=== PATIENT | female | born 1995 | race African-American/Black ===

== ENCOUNTER 2017-02-19 09:56 | Emergency (ER) | payer SELFPAY ==
[~2017-02-19] VITALS: Ht 162.6 cm; Wt 117.0 kg
[~2017-02-19 09:56] MED LIST: AMOX1TAB61 PO; AMOX500T PO; FLUT9.9S NS; IBUP-1060 PO; PRED50TA PO; PSEU120T58 PO
[2017-02-19 10:23] VITALS: BP 126/81
--- NOTE | 2017-02-19 10:52 | PHYS DOC ---
Past Medical History Past Medical History: No Pertinent History Past Surgical History: No Surgical History Alcohol Use: None Drug Use: None Adult General Chief Complaint Chief Complaint: ANKLE PROBLEM HPI HPI Patient is a 21 year old female presents to the emergency department stating that for the last week she's been having bilateral lower ankle swelling. 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 She also states that she has had no injury or trauma to her ankles. She does state that she's had some shortness of breath and some congestion as well. Patient also states that she's been having some brown in color drainage from her vaginal area and is requesting to be checked for sexually transmitted infections. Patient denies any abdominal pain or discomfort. Review of Systems Review of Systems Constitutional: Denies fever or chills [] Eyes: Denies change in visual acuity, redness, or eye pain [] HENT: Denies nasal congestion or sore throat [] Respiratory: cough and shortness of breath [] Cardiovascular: No additional information not addressed in HPI [] GI: Denies abdominal pain, nausea, vomiting, bloody stools or diarrhea [] : Denies dysuria or hematuria [] Musculoskeletal: Denies back pain complain of bilateral lower ankle swelling Integument: Denies rash or skin lesions [] Neurologic: Denies headache, focal weakness or sensory changes [] Endocrine: Denies polyuria or polydipsia [] Current Medications Current Medications Current Medications Medications (Trade) Dose Ordered Sig/Maritza Start Time Stop Time Status Last Admin Dose Admin Azithromycin (Zithromax) 1,000 mg 1X ONCE 02/19/17 12:45 02/19/17 12:46 Ceftriaxone Sodium (Rocephin Im) 250 mg 1X ONCE 02/19/17 12:45 02/19/17 12:46 Metronidazole (Flagyl) 2,000 mg 1X ONCE 02/19/17 12:45 02/19/17 12:46 Allergies Allergies Allergies Coded Allergies Type Severity Reaction Last Updated Verified No Known Drug Allergies 08/19/15 No Physical Exam Physical Exam Constitutional: Well developed, well nourished, no acute distress, non-toxic appearance. [] HENT: Normocephalic, atraumatic, bilateral external ears normal, oropharynx moist, no oral exudates, nose normal. [] Eyes: PERRLA, EOMI, conjunctiva normal, no discharge. [] Neck: Normal range of motion, no tenderness, supple, no stridor. [] Cardiovascular:Heart rate regular rhythm, no murmur [] Lungs & Thorax: Bilateral breath sounds clear to auscultation. Patient is able to talk without any shortness of air difficulty breathing noted. Abdomen: Bowel sounds normal, soft, no tenderness, no masses, no pulsatile masses. [] Skin: Warm, dry, no erythema, no rash. [] Extremities: No tenderness, no cyanosis, no clubbing, ROM intact, no edema. Bilateral pedal pulses 2+ posterior tibial pulses 2+ cap refill brisk less than 2 seconds. I do not appreciate any swelling or edema in the ankle area. Neurologic: Alert and oriented X 3, normal motor function, normal sensory function, no focal deficits noted. [] Psychologic: Affect normal, judgement normal, mood normal. [] Vaginal exam was completed with DEANNA Queen at bedside. Patient was noted to have yellow vaginal discharge that was then in color. Patient with manual exam with no adnexal or CMT tenderness noted. Current Patient Data Vital Signs Vital Signs Date Time Temp Pulse Resp B/P (MAP) Pulse Ox O2 Delivery O2 Flow Rate FiO2 02/19/17 10:23 98.9 69 18 100 Room Air 98.9 Lab Values Laboratory Tests Test 02/19/17 10:47 02/19/17 10:52 02/19/17 11:55 Urine Collection Type Unknown Urine Color Yellow Urine Clarity Clear Urine pH 6.0 Urine Specific [place] >=1.030 Urine Protein Negative mg/dL (NEG-TRACE) Urine Glucose (UA) Negative mg/dL (NEG) Urine Ketones (Stick) 15 mg/dL (NEG) Urine Blood Moderate (NEG) Urine Nitrite Negative (NEG) Urine Bilirubin Negative (NEG) Urine Urobilinogen Dipstick 0.2 mg/dL (0.2 mg/dL) Urine Leukocyte Esterase Negative (NEG) Urine RBC Occ /HPF (0-2) Urine WBC 1-4 /HPF (0-4) Urine Squamous Epithelial Cells Few /LPF Urine Bacteria Few /HPF (0-FEW) Urine Mucus Mod /LPF POC Urine HCG, Qualitative Hcg negative (Negative) White Blood Count 5.4 x10^3/uL (4.0-11.0) Red Blood Count 5.24 x10^6/uL (3.50-5.40) Hemoglobin 14.3 g/dL (12.0-15.5) Hematocrit 43.9 % (36.0-47.0) Mean Corpuscular Volume 84 fL (79-100) Mean Corpuscular Hemoglobin 27 pg (25-35) Mean Corpuscular Hemoglobin Concent 33 g/dL (31-37) Red Cell Distribution Width 13.8 % (11.5-14.5) Platelet Count 178 x10^3/uL (140-400) Neutrophils (%) (Auto) 51 % (31-73) Lymphocytes (%) (Auto) 35 % (24-48) Monocytes (%) (Auto) 9 % (0-9) Eosinophils (%) (Auto) 5 % (0-3) H Basophils (%) (Auto) 1 % (0-3) Neutrophils # (Auto) 2.8 x10^3uL (1.8-7.7) Lymphocytes # (Auto) 1.9 x10^3/uL (1.0-4.8) Monocytes # (Auto) 0.5 x10^3/uL (0.0-1.1) Eosinophils # (Auto) 0.3 x10^3/uL (0.0-0.7) Basophils # (Auto) 0.1 x10^3/uL (0.0-0.2) Sodium Level 140 mmol/L (136-145) Potassium Level 4.0 mmol/L (3.5-5.1) Chloride Level 105 mmol/L (98-107) Carbon Dioxide Level 26 mmol/L (21-32) Anion Gap 9 (6-14) Blood Urea Nitrogen 13 mg/dL (7-20) Creatinine 0.8 mg/dL (0.6-1.0) Estimated GFR (Cockcroft-Gault) 109.6 BUN/Creatinine Ratio 16 (6-20) Glucose Level 93 mg/dL (70-99) Calcium Level 9.0 mg/dL (8.5-10.1) Total Bilirubin 0.9 mg/dL (0.2-1.0) Aspartate Amino Transferase (AST) 37 U/L (15-37) Alanine Aminotransferase (ALT) 32 U/L (14-59) Alkaline Phosphatase 71 U/L (46-116) CN-Mkf-O-Type Natriuretic Peptide 12 pg/mL (0-124) Total Protein 8.5 g/dL (6.4-8.2) H Albumin 3.8 g/dL (3.4-5.0) Albumin/Globulin Ratio 0.8 (1.0-1.7) L Laboratory Tests 02/19/17 11:55 Laboratory Tests 02/19/17 11:55 Microbiology 02/19/17 Wet Prep - Final, Complete EKG EKG [] Radiology/Procedures Radiology/Procedures [] Course & Med Decision Making Course & Med Decision Making Pertinent Labs and Imaging studies reviewed. (See chart for details) CBC, CMP, BNP, chest x-ray, wet prep were negative for any abnormalities. Patient will be discharged home with recommendations for Tylenol or ibuprofen for pain and discomfort. Recommended elevation of her lower extremities as well as MARCUS hose when she is at work. Patient will be discharged home in stable condition with signs and symptoms to return back to emergency department. Recommended that she follow up with a primary care physician in the next week. All questions and concerns was answered at patient's bedside. Patient agrees with discharge instructions, treatment regimens and follow-up recommendations. [] Dragon Disclaimer Dragon Disclaimer This electronic medical record was generated, in whole or in part, using a voice recognition dictation system. Departure Departure Impression: Primary Impression: Concern about sexually transmitted disease in female without diagnosis Additional Impression: Localized swelling of both lower legs Disposition: 01 HOME, SELF-CARE Condition: STABLE Referrals: NO PCP (PCP) Patient Instructions: Ankle Pain, Sexually Transmitted Disease, [id number] Additional Instructions: Your lab results were negative for any abnormalities. Your chest x-ray was negative as well. You'll be notified if you're cultures are positive within the next 3-5 days. Refrain from sexual intercourse for the next 2 weeks. Tylenol or ibuprofen for pain and discomfort. It is imperative that you 6 sex practices to prevent sexual transmitted infections. You may use compression stocking to help with lower leg swelling Follow-up with your primary care physician in the next week. Return back to emergency prior signs symptoms of become worse. Problem Qualifiers OSMIN ALVAREZ APRN Feb 19, 2017 10:52
--- NOTE | 2017-02-19 11:10 | RAD ---
2 view CXR: Clinical indications: Shortness of air with bilateral ankle swelling. Findings: No acute lung infiltrate or pleural effusion or pulmonary edema or lung mass or pneumothorax is seen. The heart size, pulmonary vasculature, mediastinum and both ike are unremarkable. The osseous structures appear intact. Impression: No acute radiographic abnormality is seen.
[2017-02-19 11:59] LABS: BILIRUBIN,URINE NEGATIVE (NEG); GLUCOSE,URINE NEGATIVE (NEG); NITRITE,URINE NEGATIVE (NEG); PROTEIN,URINE NEGATIVE (NEG-TRACE); UROBILINOGEN,URINE 0.2 mg/dL (0.2 mg/dL)
[2017-02-19 12:00] LABS: BACTERIA,URINE FEW /HPF (0-FEW); RBC,URINE OCC /HPF (0-2); SQUAMOUS EPITHELIAL CELL,UR FEW /LPF
[2017-02-19 12:08] LABS: BASO # 0.1 x10^3/uL (0.0-0.2); BASO % 1 % (0-3); EOS % 5 % (0-3); HEMATOCRIT 43.9 % (36.0-47.0); HEMOGLOBIN 14.3 g/dL (12.0-15.5); LYMPH # 1.9 x10^3/uL (1.0-4.8); LYMPH % 35 % (24-48); MEAN CORPUSCULAR HEMOGLOBIN 27 pg (25-35); MEAN CORPUSCULAR HGB CONC 33 g/dL (31-37); MEAN CORPUSCULAR VOLUME 84 fL (79-100); MONO % 9 % (0-9); NEUT % 51 % (31-73); PLATELET COUNT 178 x10^3/uL (140-400); RED BLOOD COUNT 5.24 x10^6/uL (3.50-5.40); RED CELL DISTRIBUTION WIDTH 13.8 % (11.5-14.5); WHITE BLOOD COUNT 5.4 x10^3/uL (4.0-11.0)
[2017-02-19 12:18] LABS: CREATININE 0.8 mg/dL (0.6-1.0); GFR 109.6
[2017-02-19 12:27] LABS: ALBUMIN 3.8 g/dL (3.4-5.0); ALBUMIN/GLOBULIN RATIO 0.8 (1.0-1.7); TOTAL BILIRUBIN 0.9 mg/dL (0.2-1.0); TOTAL PROTEIN 8.5 g/dL (6.4-8.2)
[2017-02-19] MEDS ORDERED: AZITHROMYCIN 250 MG TABLET. PO ONE (12:45)
[2017-02-19] MEDS ORDERED: metroNIDAZOLE 500 MG TABLET PO ONE (12:45)
[2017-02-19] MEDS ORDERED: cefTRIAXone IM 250 MG VIAL IM ONE (12:45)
== END 2017-02-19 13:05 | disposition home or self-care (01) ==
LOC: ER 09:56
DX: Z11.3 Encounter for screening for infections with a predominantly sexual mode of transmission (principal); M79.89 Other specified soft tissue disorders; N89.8 Other specified noninflammatory disorders of vagina
CPT/HCPCS: 36415; 71020; 80053; 81001; 81025; 83880; 85025; 87491; 87591; 96372; 99285; J0696; Q0111; Q0144

== ENCOUNTER 2017-05-30 16:23 | Emergency (ER) | payer OTHER ==
[2017-05-30 16:50] LABS: URINE HCG POC HCG NEGATIVE (Negative)
[2017-05-30 17:28] LABS: BILIRUBIN,URINE NEGATIVE (NEG); CLARITY,URINE CLEAR; COLOR,URINE YELLOW; GLUCOSE,URINE NEGATIVE (NEG); NITRITE,URINE NEGATIVE (NEG); PH,URINE 5.5; PROTEIN,URINE NEGATIVE (NEG-TRACE)
[2017-05-30 17:40] LABS: BACTERIA,URINE MODERATE /HPF (0-FEW); RBC,URINE 0 /HPF (0-2); SQUAMOUS EPITHELIAL CELL,UR MOD /LPF
[2017-05-30] MEDS: AZITHROMYCIN 250 MG TABLET. PO (18:32)
[2017-05-30] MEDS: metroNIDAZOLE 500 MG TABLET PO (18:32)
[2017-05-30] MEDS: cefTRIAXone IM 250 MG VIAL IM (18:35)
[2017-05-31 19:18] LABS: CHLAMYDIA PROBE Negative (Negative); GC PROBE Negative (Negative)
== END 2017-05-30 18:55 | disposition home or self-care (01) ==
LOC: ER 16:23
DX: N76.0 Acute vaginitis (principal); B96.89 Other specified bacterial agents as the cause of diseases classified elsewhere; N72 Inflammatory disease of cervix uteri
CPT/HCPCS: 81001; 81025; 87086; 87491; 87591; 96372; 99284-25; J0696; Q0111; Q0144

== ENCOUNTER 2017-06-29 15:37 | Emergency (ER) | payer OTHER ==
[2017-06-29 16:47] LABS: BILIRUBIN,URINE NEGATIVE (NEG); CLARITY,URINE TURBID; COLOR,URINE YELLOW; GLUCOSE,URINE NEGATIVE (NEG); NITRITE,URINE NEGATIVE (NEG); PROTEIN,URINE NEGATIVE (NEG-TRACE); UROBILINOGEN,URINE 0.2 mg/dL (0.2 mg/dL)
[2017-06-29 16:49] LABS: URINE HCG POC HCG NEGATIVE (Negative)
[2017-06-29 16:56] LABS: BACTERIA,URINE MOD /HPF (0-FEW); RBC,URINE 0 /HPF (0-2); SQUAMOUS EPITHELIAL CELL,UR MOD /LPF; YEAST,URINE PRESENT /HPF
[2017-06-30 14:32] LABS: CHLAMYDIA PROBE Negative (Negative); GC PROBE Negative (Negative)
== END 2017-06-29 17:40 | disposition home or self-care (01) ==
LOC: ER 15:37
DX: N89.8 Other specified noninflammatory disorders of vagina (principal)
CPT/HCPCS: 81001; 81025; 87491; 87591; 99284; Q0111

== ENCOUNTER 2017-09-20 10:06 | Emergency (ER) | payer OTHER ==
[2017-09-20 10:22] LABS: URINE HCG POC HCG NEGATIVE (Negative)
[2017-09-20 10:52] LABS: BILIRUBIN,URINE NEGATIVE (NEG); CLARITY,URINE CLEAR; COLOR,URINE YELLOW; GLUCOSE,URINE NEGATIVE (NEG); NITRITE,URINE NEGATIVE (NEG); PH,URINE 7.5; PROTEIN,URINE NEGATIVE (NEG-TRACE)
[2017-09-20 11:03] LABS: BACTERIA,URINE FEW /HPF (0-FEW); RBC,URINE 0 /HPF (0-2); SQUAMOUS EPITHELIAL CELL,UR MANY /LPF; WBC,URINE 0 /HPF (0-4)
[2017-09-20] MEDS: metroNIDAZOLE 500 MG TABLET PO (11:36)
[2017-09-20] MEDS: AZITHROMYCIN 250 MG TABLET. PO (11:37)
[2017-09-20] MEDS: cefTRIAXone IM 250 MG VIAL IM (11:37)
[2017-09-21 14:28] LABS: CHLAMYDIA PROBE Negative (Negative); GC PROBE Negative (Negative)
== END 2017-09-20 12:39 | disposition home or self-care (01) ==
LOC: ER 10:06
DX: N76.0 Acute vaginitis (principal); Z11.3 Encounter for screening for infections with a predominantly sexual mode of transmission
CPT/HCPCS: 81001; 81025; 87491; 87591; 96372; 99284; J0696; Q0111; Q0144

== ENCOUNTER 2017-09-27 08:39 | Emergency (ER) | payer OTHER ==
[2017-09-27 08:57] LABS: URINE HCG POC HCG NEGATIVE (Negative)
[2017-09-27 09:21] LABS: BILIRUBIN,URINE NEGATIVE (NEG); CLARITY,URINE CLOUDY; COLOR,URINE YELLOW; GLUCOSE,URINE NEGATIVE (NEG); NITRITE,URINE NEGATIVE (NEG); PH,URINE 7.5; PROTEIN,URINE NEGATIVE (NEG-TRACE); UROBILINOGEN,URINE 0.2 mg/dL (0.2 mg/dL)
[2017-09-27 09:42] LABS: BACTERIA,URINE FEW /HPF (0-FEW); RBC,URINE 0 /HPF (0-2); WBC,URINE 0 /HPF (0-4)
== END 2017-09-27 09:53 | disposition home or self-care (01) ==
LOC: ER 08:39
DX: N39.0 Urinary tract infection, site not specified (principal)
CPT/HCPCS: 81001; 81025; 87491; 87591; 99284

== ENCOUNTER 2017-12-06 08:27 | Emergency (ER) | payer OTHER ==
[2017-12-06 09:07] LABS: URINE HCG POC HCG NEGATIVE (Negative)
[2017-12-06 09:09] LABS: BILIRUBIN,URINE NEGATIVE (NEG); CLARITY,URINE CLEAR; COLOR,URINE YELLOW; GLUCOSE,URINE NEGATIVE (NEG); NITRITE,URINE NEGATIVE (NEG); PROTEIN,URINE NEGATIVE (NEG-TRACE)
[2017-12-06] MEDS ORDERED: LIDOCAINE WITH 8.4% SOD BICARB 3 ML DISP.SYRIN. (09:09)
[2017-12-06] MEDS: AZITHROMYCIN 250 MG TABLET. PO (09:24)
[2017-12-06 09:26] LABS: BACTERIA,URINE FEW /HPF (0-FEW); RBC,URINE 0 /HPF (0-2); SQUAMOUS EPITHELIAL CELL,UR MOD /LPF
[2017-12-06] MEDS: cefTRIAXone IM 250 MG VIAL IM (09:26)
[2017-12-07 14:37] LABS: CHLAMYDIA PROBE Negative (Negative); GC PROBE Negative (Negative)
== END 2017-12-06 09:50 | disposition home or self-care (01) ==
LOC: ER 08:27
DX: Z20.2 Contact with and (suspected) exposure to infections with a predominantly sexual mode of transmission (principal)
CPT/HCPCS: 81001; 81025; 87086; 87491; 87591; 96372; 99284-25; J0696; Q0111; Q0144

== ENCOUNTER 2018-02-01 09:46 | Emergency (ER) | payer OTHER ==
[~2018-02-01] VITALS: Ht 162.6 cm; Wt 83.5 kg
[~2018-02-01 09:46] MED LIST changes: +FLUC150T PO; +METR500T PO; +NITR100C62 PO; +SULF1TAB24 PO
[2018-02-01 10:29] LABS: BILIRUBIN,URINE NEGATIVE (NEG); CLARITY,URINE CLEAR; COLOR,URINE YELLOW; NITRITE,URINE NEGATIVE (NEG); PROTEIN,URINE NEGATIVE (NEG-TRACE); UROBILINOGEN,URINE 0.2 mg/dL (0.2 mg/dL)
[2018-02-01] MEDS ORDERED: AZITHROMYCIN 250 MG TABLET. PO ONE (10:30)
[2018-02-01] MEDS ORDERED: cefTRIAXone IM 250 MG VIAL IM ONE (10:30)
[2018-02-01] MEDS ORDERED: METR500T PO (10:33)
--- NOTE | 2018-02-01 10:34 | PHYS DOC ---
Past Medical History Past Medical History: No Pertinent History Additional Past Medical Histor: gonorrhea/chlamydia Past Surgical History: No Surgical History Alcohol Use: None Drug Use: None Adult General Chief Complaint Chief Complaint: VAGINAL PROBLEM HPI HPI 22 year old female presents to ER for complaints of vaginal discharge and foul odor for the past 3-4 days. Patient reports she has had previous bacterial infections and was diagnosed several years ago with gonorrhea and chlamydia. Patient denies any pain or pressure. Patient denies abdominal pain, nausea or vomiting, or fever/chills. Pt reports vag. discharge has been clear and "slimy" . Pt reports she has Mirena and doesn't have monthly cycles. Pt denies urinary sxs. Review of Systems Review of Systems Constitutional: Denies fever or chills [] Eyes: Denies change in visual acuity, redness, or eye pain [] HENT: Denies nasal congestion or sore throat [] Respiratory: Denies cough or shortness of breath [] Cardiovascular: No additional information not addressed in HPI [] GI: Denies abdominal pain, nausea, vomiting, bloody stools or diarrhea [] : Denies dysuria or hematuria. Denies pelvic pain/pressure. Reports clear slimy vag. discharge. Denies pelvic pain/pressure. Musculoskeletal: Denies back pain or joint pain [] Integument: Denies rash or skin lesions [] Neurologic: Denies headache, focal weakness or sensory changes [] All other systems were reviewed and found to be within normal limits, except as documented in this note. Current Medications Current Medications Current Medications Medications (Trade) Dose Ordered Sig/Maritza Start Time Stop Time Status Last Admin Dose Admin Azithromycin (Zithromax) 1,000 mg 1X ONCE 02/01/18 10:30 02/01/18 10:31 DC 02/01/18 10:34 1,000 MG Ceftriaxone Sodium (Rocephin Im) 250 mg 1X ONCE 02/01/18 10:30 02/01/18 10:31 DC 02/01/18 10:34 250 MG Allergies Allergies Allergies Coded Allergies Type Severity Reaction Last Updated Verified No Known Drug Allergies 08/19/15 No Physical Exam Physical Exam Constitutional: Well developed, well nourished, no acute distress, non-toxic appearance. [] HENT: Normocephalic, atraumatic, bilateral external ears normal, oropharynx moist, no oral exudates, nose normal. [] Eyes: PERRLA, EOMI, conjunctiva normal, no discharge. [] Neck: Normal range of motion, no tenderness, supple, no stridor. [] Cardiovascular:Heart rate regular rhythm, no murmur [] Lungs & Thorax: Bilateral breath sounds clear to auscultation [] Abdomen: Bowel sounds normal, soft, no tenderness, no masses, no pulsatile masses. [] Skin: Warm, dry, no erythema, no rash. [] Back: No tenderness, no CVA tenderness. [] Extremities: No tenderness, no cyanosis, no clubbing, ROM intact, no edema. [] Neurologic: Alert and oriented X 3, normal motor function, normal sensory function, no focal deficits noted. [] Psychologic: Affect normal, judgement normal, mood normal. [] Current Patient Data Vital Signs Vital Signs Date Time Temp Pulse Resp B/P (MAP) Pulse Ox O2 Delivery O2 Flow Rate FiO2 02/01/18 12:02 65 16 130/91 (104) 100 Room Air 02/01/18 09:50 98.6 98.6 Lab Values Laboratory Tests Test 02/01/18 10:05 02/01/18 10:19 Urine Collection Type Unknown Urine Color Yellow Urine Clarity Clear Urine pH 7.0 Urine Specific [place] 1.025 Urine Protein Negative mg/dL (NEG-TRACE) Urine Glucose (UA) Negative mg/dL (NEG) Urine Ketones (Stick) Negative mg/dL (NEG) Urine Blood Negative (NEG) Urine Nitrite Negative (NEG) Urine Bilirubin Negative (NEG) Urine Urobilinogen Dipstick 0.2 mg/dL (0.2 mg/dL) Urine Leukocyte Esterase Small (NEG) Urine RBC Occ /HPF (0-2) Urine WBC 11-20 /HPF (0-4) Urine Squamous Epithelial Cells Mod /LPF Urine Bacteria Few /HPF (0-FEW) POC Urine HCG, Qualitative Hcg negative (Negative) Microbiology 02/01/18 Wet Prep - Final, Complete EKG EKG [] Radiology/Procedures Radiology/Procedures 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 (See chart for details) With findings on pelvic exam pt will be provided with Rx for Flagyl- GC/ chlamydia results pending pt preferred tx while in ER while tests were pending and was made aware of following up on results in next 1-2 days. Discussed test results with pt with neg. yeast/trich. Pt's UA showed neg. HCG sm. leuks with 11 -20 WBCs on micro neg. nitrates/blood- discussed Rx for Keflex. Pt advised on abstinence until infection cleared- she is to f/u with CASUALTY CLAIMS SUPERVISOR for re- evaluation. Condom use was discussed. Pt is in no visible distress at time of discharge instructions. Education was provided on signs and symptoms to return to ER for an discharge instructions were discussed. Dragon Disclaimer Dragon Disclaimer This electronic medical record was generated, in whole or in part, using a voice recognition dictation system. Departure Departure Impression: Primary Impression: Vaginal discharge Additional Impressions: Bacterial vaginosis Urinary tract infection Disposition: HOME, SELF-CARE Condition: STABLE Referrals: NO PCP (PCP) Patient Instructions: Bacterial Vaginosis, Urinary Tract Infection Additional Instructions: As discussed your gonorrhea and chlamydia results are pending- with your symptoms you were treated while in the Emergency Department with Rocephin and Azithromycin. You are being prescribed an additional antibiotic Flagyl for treatment also- no drinking alcohol while on this medication and for 3 days after finishing entire prescription. Avoid sex until infection is clear- you should follow-up with your CASUALTY CLAIMS SUPERVISOR for re -evaluation to ensure infection is completely treated. Condom use recommended if you choose to have sex. Scripts Cephalexin (KEFLEX) 500 Mg Capsule 1 CAP PO BID, #10 CAP 0 Refills Prov: QUINCY LOFTON APRN 02/01/18 Metronidazole (FLAGYL) 500 Mg Tablet 1 TAB PO BID, #14 TAB 0 Refills No alcohol while taking this medication and for 3 days after completion Prov: QUINCY LOFTON APRN 02/01/18 Problem Qualifiers QUINCY LOFTON APRN Feb 01, 2018 10:34
[2018-02-01 10:35] LABS: BACTERIA,URINE FEW /HPF (0-FEW); RBC,URINE OCC /HPF (0-2); SQUAMOUS EPITHELIAL CELL,UR MOD /LPF
[2018-02-01] MEDS ORDERED: CEPH-264 PO (11:48)
[2018-02-01 12:02] VITALS: BP 130/91
[2018-02-02 15:26] LABS: GC PROBE Negative (Negative)
== END 2018-02-01 12:02 | disposition home or self-care (01) ==
LOC: ER 09:46
DX: N76.0 Acute vaginitis (principal); B96.89 Other specified bacterial agents as the cause of diseases classified elsewhere; N39.0 Urinary tract infection, site not specified
CPT/HCPCS: 81001; 81025; 87086; 87491; 87591; 96372; 99284; J0696; Q0111; Q0144

== ENCOUNTER 2019-04-16 13:09 | Emergency (ER) | payer OTHER ==
[~2019-04-16] VITALS: Ht 162.6 cm; Wt 73.9 kg
[~2019-04-16 13:09] MED LIST changes: +CEPH-264 PO; +CEPH500C PO; +DIPH25CA58 PO; +FAMO20TA5 PO
[2019-04-16 13:40] VITALS: BP 128/80
[2019-04-16 14:07] LABS: BILIRUBIN,URINE NEGATIVE (NEG); CLARITY,URINE CLEAR; COLOR,URINE YELLOW; NITRITE,URINE NEGATIVE (NEG); PROTEIN,URINE NEGATIVE (NEG-TRACE)
[2019-04-16 14:14] LABS: BACTERIA,URINE 0 /HPF (0-FEW); RBC,URINE 0 /HPF (0-2); WBC,URINE 0 /HPF (0-4)
[2019-04-16] MEDS ORDERED: AZITHROMYCIN 250 MG TABLET. PO ONE (14:15)
[2019-04-16] MEDS ORDERED: cefTRIAXone IM 250 MG VIAL IM ONE (14:15)
[2019-04-16] MEDS ORDERED: ONDANSETRON ODT 4 MG TAB.RAPDIS. PO ONE (15:45)
[2019-04-16] MEDS ORDERED: METR-34 PO (15:54)
--- NOTE | 2019-04-16 15:55 | PHYS DOC ---
Past Medical History Past Medical History: No Pertinent History Additional Past Medical Histor: gonorrhea/chlamydia Past Surgical History: No Surgical History Alcohol Use: None Drug Use: None Adult General Chief Complaint Chief Complaint: VAGINAL PROBLEM HPI HPI Patient is a 23 year old AA female who presents to the emergency department with complaints of a vaginal odor for the last week and a half and vaginal itching. Patient states for the last 2 days she has also experienced abnormal white to yellow vaginal discharge. She denies any recent use of antibiotics. She denies any back pain, dysuria, hematuria, increased urinary frequency, fever, abdominal pain, nausea, vomiting, or diarrhea. She denies any pain at this time. Patient does report concern of a possible sexually transmitted infection. All other ROS is neg unless otherwise noted in HPI. Review of Systems Review of Systems See Above Current Medications Current Medications Current Medications Medications (Trade) Dose Ordered Sig/Maritza Start Time Stop Time Status Last Admin Dose Admin Azithromycin (Zithromax) 1,000 mg 1X ONCE 04/16/19 14:15 04/16/19 14:16 DC 04/16/19 14:34 1,000 MG Ceftriaxone Sodium (Rocephin Im) 250 mg 1X ONCE 04/16/19 14:15 04/16/19 14:16 DC 04/16/19 14:35 250 MG Ondansetron HCl (Zofran Odt) 4 mg 1X ONCE 04/16/19 15:45 04/16/19 15:46 DC Allergies Allergies Allergies Coded Allergies Type Severity Reaction Last Updated Verified No Known Drug Allergies 08/19/15 No Physical Exam Physical Exam See Above Constitutional: Well developed, well nourished, no acute distress, non-toxic appearance. [] HENT: Normocephalic, atraumatic, bilateral external ears normal, nose normal. [] Eyes: PERRLA, EOMI, conjunctiva normal, no discharge. [] Neck: Normal range of motion, no tenderness, supple, no stridor. [] Cardiovascular:Heart rate regular rhythm Lungs & Thorax: Respirations even and unlabored, no retractions, no respiratory distress Pelvic Exam: Custodial Foreman present Rakel RN Abdomen: Nontender, soft External Genitalia: Normal Skin Speculum: Normal vaginal mucosa, normal cervical discharge; thick, white, malodorus vaginal discharge Bimanual: No adnexal masses or tenderness, No CMT Skin: Warm, dry, no erythema, no rash. [] Extremities: No cyanosis, ROM intact, no edema. [] Neurologic: Alert and oriented X 3, no focal deficits noted. [] Psychologic: Affect normal, judgement normal, mood normal. [] Current Patient Data Vital Signs Vital Signs Date Time Temp Pulse Resp B/P (MAP) Pulse Ox O2 Delivery O2 Flow Rate FiO2 04/16/19 13:40 98.5 85 16 128/80 (96) 97 Room Air 98.5 Lab Values Laboratory Tests Test 04/16/19 13:39 04/16/19 13:50 POC Urine HCG, Qualitative Hcg negative (Negative) Urine Collection Type Unknown Urine Color Yellow Urine Clarity Clear Urine pH 7.0 Urine Specific [place] >=1.030 Urine Protein Negative mg/dL (NEG-TRACE) Urine Glucose (UA) Negative mg/dL (NEG) Urine Ketones (Stick) Negative mg/dL (NEG) Urine Blood Negative (NEG) Urine Nitrite Negative (NEG) Urine Bilirubin Negative (NEG) Urine Urobilinogen Dipstick 1.0 mg/dL (0.2 mg/dL) Urine Leukocyte Esterase Negative (NEG) Urine RBC 0 /HPF (0-2) Urine WBC 0 /HPF (0-4) Urine Squamous Epithelial Cells None /LPF Urine Bacteria 0 /HPF (0-FEW) Urine Mucus Slight /LPF Microbiology 04/16/19 Wet Prep - Final, Complete EKG EKG [] Radiology/Procedures Radiology/Procedures [] Course & Med Decision Making Course & Med Decision Making Pertinent Labs and Imaging studies reviewed. (See chart for details) Patient was treated prophylactically with 250 mg of IM Rocephin, and 1 g of PO Zithromax. Patient was instructed to avoid having intercourse until the results of gonorrhea and chlamydia testing are available, patient was notified that these results would not be available for 48 hours. If one or both of these tests is positive, patient needs to refrain from intercourse for approximately 1 week following the treatment of any current partners. Patient verbalized an understanding of home care, medications, follow-up, and return to ED instructions and was in agreement with the plan of care. [] Dragon Disclaimer Dragon Disclaimer This electronic medical record was generated, in whole or in part, using a voice recognition dictation system. Departure Departure Impression: Primary Impression: Bacterial vaginosis Additional Impressions: Concern about sexually transmitted disease in female withoutdiagnosis Vaginal discharge Disposition: 01 HOME, SELF-CARE Condition: STABLE Referrals: NO PCP (PCP) Patient Instructions: Bacterial Vaginosis, [id number], Sexually Transmitted Disease, [id number] Additional Instructions: Fill the prescription and use as directed. Recommend that you go to your local health department for comprehensive sexually transmitted disease testing. You have been treated for a suspected gonorrhea and chlamydia. Avoid having intercourse until the results of gonorrhea and chlamydia testing are available, these results will not be available for 48 hours. If one or both of these tests is positive, you need to refrain from intercourse for approximately 1 week following the treatment of any current partners. Follow-up with your primary care doctor if symptoms persist, return to ER symptoms worsen. Scripts Metronidazole (METRONIDAZOLE) 500 Mg Tablet 1 TAB PO BID for 7 Days, #14 TAB 0 Refills Prov: VISHNU ZELAYA APRN 04/16/19 Problem Qualifiers VISHNU ZELAYA APRN Apr 16, 2019 15:54
[2019-04-18 02:08] LABS: GC PROBE Negative (Negative)
== END 2019-04-16 16:06 | disposition home or self-care (01) ==
LOC: ER 13:09
DX: N76.0 Acute vaginitis (principal); B96.89 Other specified bacterial agents as the cause of diseases classified elsewhere; Z20.2 Contact with and (suspected) exposure to infections with a predominantly sexual mode of transmission
CPT/HCPCS: 81001; 81025; 87491; 87591; 96372; 99284; J0696; Q0111; Q0144; Q0162

== ENCOUNTER 2019-09-30 13:28 | Emergency (ER) | payer OTHER ==
[~2019-09-30] VITALS: Ht 162.6 cm; Wt 73.0 kg
[~2019-09-30 13:28] MED LIST changes: +METR-34 PO
[2019-09-30 14:05] VITALS: BP 134/93
[2019-09-30] MEDS ORDERED: AMOX500C PO (14:47)
[2019-09-30] MEDS ORDERED: METH4TAB2 PO (14:47)
--- NOTE | 2019-09-30 14:47 | PHYS DOC ---
Past Medical History Past Medical History: No Pertinent History Additional Past Medical Histor: gonorrhea/chlamydia Past Surgical History: No Surgical History Smoking Status: Never Smoker Alcohol Use: Rarely Drug Use: None General Adult EDM: Chief Complaint: SORE THROAT HPI: HPI: Patient is a 23 year old female who presents with sore throat x 3 days. Denies nausea, vomiting, abdominal pain, chills, cough, headache, chest pain, shortness of air. Rates her pain an 8 out of 10. States she is eating and drinking appropriately but is painful to swallow. Review of Systems: Review of Systems: HENT: Denies nasal congestion. + sore throat. [] Heart Score: Risk Factors: Risk Factors: DM, Current or recent (<one month) smoker, HTN, HLP, family history of CAD, obesity. Risk Scores: Score 0 - 3: 2.5% MACE over next 6 weeks - Discharge Home Score 4 - 6: 20.3% MACE over next 6 weeks - Admit for Clinical Observation Score 7 - 10: 72.7% MACE over next 6 weeks - Early Invasive Strategies Allergies: Allergies: Allergies Coded Allergies Type Severity Reaction Last Updated Verified No Known Drug Allergies 08/19/15 No Physical Exam: PE: Constitutional: Well developed, well nourished, no acute distress, non-toxic appearance. [] HENT: Normocephalic, atraumatic, bilateral external ears normal, oropharynx mo ist, no oral exudates, nose normal. Bilateral tonsils 1+ swelling with exudates. [] Eyes: PERRLA, EOMI, conjunctiva normal, no discharge. [] Neck: Normal range of motion, no tenderness, supple, no stridor. [] Cardiovascular:Heart rate regular rhythm, no murmur [] Lungs & Thorax: Bilateral breath sounds clear to auscultation [] Abdomen: Bowel sounds normal, soft, no tenderness, no masses, no pulsatile masses. [] Skin: Warm, dry, no erythema, no rash. [] Back: No tenderness, no CVA tenderness. [] Extremities: No tenderness, no cyanosis, no clubbing, ROM intact, no edema. [] Neurologic: Alert and oriented X 3, normal motor function, normal sensory function, no focal deficits noted. [] Psychologic: Affect normal, judgement normal, mood normal. [] Current Patient Data: Vital Signs: Vital Signs Date Time Temp Pulse Resp B/P (MAP) Pulse Ox O2 Delivery O2 Flow Rate FiO2 09/30/19 14:05 99.4 98 18 134/93 (107) 100 Room Air 99.4 EKG: EKG: [] Radiology/Procedures: Radiology/Procedures: [] Course & Med Decision Making: Course & Med Decision Making Pertinent Labs and Imaging studies reviewed. (See chart for details) Alert and oriented. Speaks in full clear sentences. Bilateral tonsils are 1+ swelling with exudates. Uvula midline. No trismus. [] Dragon Disclaimer: Dragon Disclaimer: This electronic medical record was generated, in whole or in part, using a voice recognition dictation system. Departure Departure Impression: Primary Impression: Sore throat Disposition: 01 HOME, SELF-CARE Condition: STABLE Referrals: NO PCP (PCP) Patient Instructions: Sore Throat Additional Instructions: Take medication as prescribed and until gone. Take medication with food. Drink plenty of water. Use salt water gargles. Take Tylenol for your pain or fever. Scripts Methylprednisolone (MEDROL) 4 Mg Tab.ds.pk 1 PKG PO UD, #1 PKG Prov: OSMIN ZUNIGA MUSEUM REGISTRAR 09/30/19 Amoxicillin (AMOXICILLIN) 500 Mg Capsule 1 CAP PO BID, #20 CAP Prov: OSMIN ZUNIGA MUSEUM REGISTRAR 09/30/19 OSMIN ZUNIGA MUSEUM REGISTRAR September 30, 2019 14:47
== END 2019-09-30 15:17 | disposition home or self-care (01) ==
LOC: ER 13:28
DX: J02.9 Acute pharyngitis, unspecified (principal)
CPT/HCPCS: 87070; 87880; 99283

== ENCOUNTER 2019-10-12 16:18 | Emergency (ER) | payer OTHER ==
[~2019-10-12] VITALS: Ht 162.6 cm; Wt 72.0 kg
[~2019-10-12 16:18] MED LIST changes: +AMOX500C PO; +METH4TAB2 PO
[2019-10-12] MEDS ORDERED: methylPREDNISolone SOD SUCC PF 125 MG/2 ML VIAL. IV ONE (17:15)
[2019-10-12] MEDS ORDERED: IV NORMAL SALINE 1000ML BAG 1,000 ML IV ONE (17:15)
[2019-10-12] MEDS ORDERED: CONTRAST GIVEN. MC PRN (17:45)
[2019-10-12 17:49] LABS: BASO # 0.1 x10^3/uL (0.0-0.2); BASO % 1 % (0-3); EOS # 0.2 x10^3/uL (0.0-0.7); EOS % 1 % (0-3); HEMATOCRIT 42.4 % (36.0-47.0); HEMOGLOBIN 13.7 g/dL (12.0-15.5); LYMPH # 2.2 x10^3/uL (1.0-4.8); LYMPH % 15 % (24-48); MEAN CORPUSCULAR HEMOGLOBIN 27 pg (25-35); MEAN CORPUSCULAR HGB CONC 32 g/dL (31-37); MEAN CORPUSCULAR VOLUME 85 fL (79-100); MONO % 7 % (0-9); NEUT # 11.3 x10^3/uL (1.8-7.7); NEUT % 77 % (31-73); PLATELET COUNT 205 x10^3/uL (140-400); RED BLOOD COUNT 5.02 x10^6/uL (3.50-5.40); RED CELL DISTRIBUTION WIDTH 13.8 % (11.5-14.5); WHITE BLOOD COUNT 14.8 x10^3/uL (4.0-11.0)
[2019-10-12 17:57] LABS: CALCIUM 8.9 mg/dL (8.5-10.1); CREATININE 0.9 mg/dL (0.6-1.0); GFR 93.1; POTASSIUM 3.9 mmol/L (3.5-5.1)
[2019-10-12] MEDS ORDERED: IOHEXOL 300 MG/ML 100ML VIAL. IV ONE (18:00)
[2019-10-12 18:02] LABS: ALBUMIN 3.5 g/dL (3.4-5.0); ALBUMIN/GLOBULIN RATIO 0.8 (1.0-1.7); TOTAL BILIRUBIN 0.6 mg/dL (0.2-1.0); TOTAL PROTEIN 8.1 g/dL (6.4-8.2)
[2019-10-12 19:00] VITALS: BP 128/72
--- NOTE | 2019-10-12 19:36 | RAD ---
Exam: CT soft tissue neck without contrast INDICATION: Throat swelling, possible peritonsillar abscess TECHNIQUE: Sequential axial images through the neck obtained without IV contrast. Sagittal and coronal reformatted images were reconstructed from the axial data and reviewed. Comparisons: None FINDINGS: Visualized intracranial structures are unremarkable. Nasopharynx, oropharynx, hypopharynx and larynx are patent. No peritonsillar fluid collection or inflammatory changes are identified. There is mild enlargement of the palatine tonsils Thyroid is normal. Salivary glands are within normal limits. No enlarged mediastinal lymph nodes are identified. Visualized lung apices are clear. No suspicious osseous lesions or acute fractures. IMPRESSION: Mild enlargement of the palatine tonsils, may relate to infection or inflammation. No evidence for peritonsillar abscess. Exposure: One or more of the following in the visualized dose reduction techniques were utilized for this examination: 1. Automated exposure control 2. Adjustment of the MA and/or KV according to patient size 3. Use of iterative of reconstructive technique Electronically signed by: Jessica Gao MD (10/12/2019 7:33 PM) [id number]
[2019-10-12] MEDS ORDERED: CLIN150C14 PO (20:12)
[2019-10-12] MEDS ORDERED: PRED50TA PO (20:12)
--- NOTE | 2019-10-12 20:12 | PHYS DOC ---
Past Medical History Past Medical History: No Pertinent History Additional Past Medical Histor: gonorrhea/chlamydia Past Surgical History: No Surgical History Smoking Status: Never Smoker Alcohol Use: Rarely Drug Use: None General Adult EDM: Chief Complaint: SORE THROAT HPI: HPI: Patient is a 24 year old female who presents to the ED today complaining of a sore throat that began 2 weeks ago. Patient states she was seen in the ED 2 weeks ago, was discharged on amoxicillin and prednisone. She states she still on the amoxicillin but symptoms are not improving. She states she finished the prednisone. Denies any difficulty breathing or swallowing. Denies any fever. Review of Systems: Review of Systems: Constitutional: Denies fever or chills. [] Eyes: Denies change in visual acuity. [] HENT: Reports sore throat. Denies nasal congestion Respiratory: Denies cough or shortness of breath. [] Cardiovascular: Denies chest pain or edema. [] GI: Denies abdominal pain, nausea, vomiting, bloody stools or diarrhea. [] : Denies dysuria. [] Musculoskeletal: Denies back pain or joint pain. [] Integument: Denies rash. [] Neurologic: Denies headache, focal weakness or sensory changes. [] Endocrine: Denies polyuria or polydipsia. [] Lymphatic: Denies swollen glands. [] Psychiatric: Denies depression or anxiety. [] Heart Score: Risk Factors: Risk Factors: DM, Current or recent (<one month) smoker, HTN, HLP, family history of CAD, obesity. Risk Scores: Score 0 - 3: 2.5% MACE over next 6 weeks - Discharge Home Score 4 - 6: 20.3% MACE over next 6 weeks - Admit for Clinical Observation Score 7 - 10: 72.7% MACE over next 6 weeks - Early Invasive Strategies Current Medications: Current Medications Medications (Trade) Dose Ordered Sig/Maritza Start Time Stop Time Status Last Admin Dose Admin Info (CONTRAST GIVEN -- Rx MONITORING) 1 each PRN DAILY PRN 10/12/19 17:45 10/12/19 19:29 DC Iohexol (Omnipaque 300 Mg/ml) 75 ml 1X ONCE 10/12/19 18:00 10/12/19 18:01 Cancel Methylprednisolone Sodium Succinate (SOLU-Medrol 125MG VIAL) 125 mg 1X ONCE 10/12/19 17:15 10/12/19 17:17 DC 10/12/19 17:50 125 MG Sodium Chloride 1,000 ml @ 1,000 mls/hr 1X ONCE 10/12/19 17:15 10/12/19 18:14 DC 10/12/19 17:44 1,000 MLS/HR Allergies: Allergies: Allergies Coded Allergies Type Severity Reaction Last Updated Verified Iodinated Contrast Media Allergy Severe "THROAT CLOSES" 10/12/19 Yes Physical Exam: PE: Constitutional: Well developed, well nourished, no acute distress, non-toxic appearance. [] HENT: Normocephalic, atraumatic, bilateral external ears normal, oropharynx moist, no oral exudates, nose normal. [] Midline uvula, +2 tonsils with mild erythema and trace exudate bilaterally. +2 anterior cervical adenopathy Eyes: PERRLA, EOMI, conjunctiva normal, no discharge. [] Neck: Normal range of motion, no tenderness, supple, no stridor. [] Cardiovascular:Heart rate regular rhythm, no murmur [] Lungs & Thorax: Bilateral breath sounds clear to auscultation [] Abdomen: Bowel sounds normal, soft, no tenderness, no masses, no pulsatile masses. [] Skin: Warm, dry, no erythema, no rash. [] Back: No tenderness, no CVA tenderness. [] Extremities: No tenderness, no cyanosis, no clubbing, ROM intact, no edema. [] Neurologic: Alert and oriented X 3, normal motor function, normal sensory function, no focal deficits noted. [] Psychologic: Affect normal, judgement normal, mood normal. [] Current Patient Data: Labs: Laboratory Tests Test 10/12/19 17:35 10/12/19 17:57 White Blood Count 14.8 x10^3/uL (4.0-11.0) H Red Blood Count 5.02 x10^6/uL (3.50-5.40) Hemoglobin 13.7 g/dL (12.0-15.5) Hematocrit 42.4 % (36.0-47.0) Mean Corpuscular Volume 85 fL (79-100) Mean Corpuscular Hemoglobin 27 pg (25-35) Mean Corpuscular Hemoglobin Concent 32 g/dL (31-37) Red Cell Distribution Width 13.8 % (11.5-14.5) Platelet Count 205 x10^3/uL (140-400) Neutrophils (%) (Auto) 77 % (31-73) H Lymphocytes (%) (Auto) 15 % (24-48) L Monocytes (%) (Auto) 7 % (0-9) Eosinophils (%) (Auto) 1 % (0-3) Basophils (%) (Auto) 1 % (0-3) Neutrophils # (Auto) 11.3 x10^3/uL (1.8-7.7) H Lymphocytes # (Auto) 2.2 x10^3/uL (1.0-4.8) Monocytes # (Auto) 1.0 x10^3/uL (0.0-1.1) Eosinophils # (Auto) 0.2 x10^3/uL (0.0-0.7) Basophils # (Auto) 0.1 x10^3/uL (0.0-0.2) Maternal Serum HCG Beta Subunit < 1 mIU/mL (0-5) Sodium Level 138 mmol/L (136-145) Potassium Level 3.9 mmol/L (3.5-5.1) Chloride Level 101 mmol/L (98-107) Carbon Dioxide Level 26 mmol/L (21-32) Anion Gap 11 (6-14) Blood Urea Nitrogen 12 mg/dL (7-20) Creatinine 0.9 mg/dL (0.6-1.0) Estimated GFR (Cockcroft-Gault) 93.1 BUN/Creatinine Ratio 13 (6-20) Glucose Level 87 mg/dL (70-99) Lactic Acid Level 0.9 mmol/L (0.4-2.0) Calcium Level 8.9 mg/dL (8.5-10.1) Total Bilirubin 0.6 mg/dL (0.2-1.0) Aspartate Amino Transferase (AST) 26 U/L (15-37) Alanine Aminotransferase (ALT) 17 U/L (14-59) Alkaline Phosphatase 59 U/L (46-116) Total Protein 8.1 g/dL (6.4-8.2) Albumin 3.5 g/dL (3.4-5.0) Albumin/Globulin Ratio 0.8 (1.0-1.7) L Procalcitonin < 0.10 ng/mL (0.00-0.10) POC Urine HCG, Qualitative Borderline hcg level Laboratory Tests 10/12/19 17:35 Laboratory Tests 10/12/19 17:35 Vital Signs: Vital Signs Date Time Temp Pulse Resp B/P (MAP) Pulse Ox O2 Delivery O2 Flow Rate FiO2 10/12/19 19:00 85 16 128/72 (90) 96 Room Air 10/12/19 16:24 98.6 98.6 EKG: EKG: [] Radiology/Procedures: Radiology/Procedures: []PROCEDURE: CT SOFT TISSUE NECK WO CONTRST Exam: CT soft tissue neck without contrast INDICATION: Throat swelling, possible peritonsillar abscess TECHNIQUE: Sequential axial images through the neck obtained without IV contrast. Sagittal and coronal reformatted images were reconstructed from the axial data and reviewed. Comparisons: None FINDINGS: Visualized intracranial structures are unremarkable. Nasopharynx, oropharynx, hypopharynx and larynx are patent. No peritonsillar fluid collection or inflammatory changes are identified. There is mild enlargement of the palatine tonsils Thyroid is normal. Salivary glands are within normal limits. No enlarged mediastinal lymph nodes are identified. Visualized lung apices are clear. No suspicious osseous lesions or acute fractures. IMPRESSION: Mild enlargement of the palatine tonsils, may relate to infection or inflammation. No evidence for peritonsillar abscess. Exposure: One or more of the following in the visualized dose reduction techniques were utilized for this examination: 1. Automated exposure control 2. Adjustment of the MA and/or KV according to patient size 3. Use of iterative of reconstructive technique Electronically signed by: Jessica Roque MD (10/12/2019 7:33 PM) [id number] DICTATED and SIGNED BY: JESSICA ROQUE MD DATE: 10/12/191932 Course & Med Decision Making: Course & Med Decision Making Pertinent Labs and Imaging studies reviewed. (See chart for details) This is a 24-year-old female patient presenting to the ED today with sore throat that began 2 weeks ago. Patient was seen in the ED, started on amoxicillin and prednisone. She reports no improvement. Airways open. CBC with a WBC of 14.8, CMP with no acute findings, lactic is normal. CT of the neck soft tissue was noted for mild enlargement of the palatine tonsils, may relate to infection or inflammation. No evidence for peritonsillar abscess. Dragon Disclaimer: Nash Disclaimer: This electronic medical record was generated, in whole or in part, using a voice recognition dictation system. Departure Departure Impression: Primary Impression: Acute tonsillitis Qualified Codes: J03.90 - Acute tonsillitis, unspecified Disposition: HOME, SELF-CARE Condition: STABLE Referrals: NO PCP (PCP) PUJA MYERS MD follow up in 1-2 weeks Patient Instructions: Tonsillitis Additional Instructions: Patient was given Rocephin IV push in the ED, she was also given clindamycin. Discharged on clindamycin and tapered dose of prednisone. Follow-up with primary care doctor or the provided ENT in a week. Scripts Prednisone (PREDNISONE) 50 Mg Tablet 1 TAB PO DAILY, #5 TAB Prov: CHRIS LOUIS APRN 10/12/19 Clindamycin Hcl (CLINDAMYCIN HCL) 150 Mg Capsule 3 CAP PO TID, #90 CAP Prov: CHRIS LOUIS APRN 10/12/19 Justicifation of Admission Dx: Justifications for Admission: Justification of Admission Dx: N/A CHRIS LOUIS APRN Oct 12, 2019 20:12
[2019-10-12] MEDS ORDERED: cefTRIAXone IV Push 1 GM VIAL. IVP ONE (20:30)
[2019-10-12] MEDS ORDERED: CLINDAMYCIN HCL 150 MG CAPSULE. PO ONE (20:30)
== END 2019-10-12 20:35 | disposition home or self-care (01) ==
LOC: ER 16:18
DX: J03.90 Acute tonsillitis, unspecified (principal); L53.9 Erythematous condition, unspecified; Z88.1 Allergy status to other antibiotic agents
CPT/HCPCS: 36415; 70490; 80053; 81025; 83605; 84145; 84702; 85025; 96374; 96375; 99285; J0696; J2930; J7030

== ENCOUNTER 2019-11-20 22:57 | Emergency (ER) | payer OTHER ==
[~2019-11-20] VITALS: Ht 162.6 cm; Wt 72.7 kg
[~2019-11-20 22:57] MED LIST changes: +CLIN150C14 PO
[2019-11-21 00:39] LABS: BILIRUBIN,URINE NEGATIVE (NEG); CLARITY,URINE CLEAR; COLOR,URINE YELLOW; NITRITE,URINE NEGATIVE (NEG); PH,URINE 6.5 (<5.0-8.0); PROTEIN,URINE NEGATIVE (NEG-TRACE); UROBILINOGEN,URINE 0.2 mg/dL (0.2 mg/dL)
[2019-11-21 00:46] LABS: BACTERIA,URINE FEW /HPF (0-FEW); RBC,URINE 0 /HPF (0-2); SQUAMOUS EPITHELIAL CELL,UR MOD /LPF
--- NOTE | 2019-11-21 01:09 | PHYS DOC ---
Past Medical History Past Medical History: No Pertinent History Additional Past Medical Histor: gonorrhea/chlamydia Past Surgical History: No Surgical History Smoking Status: Never Smoker Alcohol Use: Rarely Drug Use: None General Adult EDM: Chief Complaint: VAGINAL PROBLEM HPI: HPI: Patient is a 24 year old female who presents for evaluation of pelvic pain and vaginal discharge. Symptoms been progressing with the past 3 to 4 days. Patient denies any fever and chills. Patient is 0 para 0. She cannot recall her last menstrual period and is on Mirena. Patient here for evaluation Review of Systems: Review of Systems: Constitutional: Denies fever or chills. [] Eyes: Denies change in visual acuity. [] HENT: Denies nasal congestion or sore throat. [] Respiratory: Denies cough or shortness of breath. [] Cardiovascular: Denies chest pain or edema. [] GI: mild lower abdominal pain, no nausea or vomiting, no bloody stools or diarrhea. [] : Denies dysuria. [] Musculoskeletal: Denies back pain or joint pain. [] Integument: Denies rash. [] Neurologic: Denies headache, focal weakness or sensory changes. [] Endocrine: Denies polyuria or polydipsia. [] Lymphatic: Denies swollen glands. [] Psychiatric: Denies depression or anxiety. [] Heart Score: Risk Factors: Risk Factors: DM, Current or recent (<one month) smoker, HTN, HLP, family history of CAD, obesity. Risk Scores: Score 0 - 3: 2.5% MACE over next 6 weeks - Discharge Home Score 4 - 6: 20.3% MACE over next 6 weeks - Admit for Clinical Observation Score 7 - 10: 72.7% MACE over next 6 weeks - Early Invasive Strategies Allergies: Allergies: Allergies Coded Allergies Type Severity Reaction Last Updated Verified Iodinated Contrast Media Allergy Severe "THROAT CLOSES" 10/12/19 Yes Physical Exam: PE: Constitutional: Well developed, well nourished, mild acute distress, non-toxic appearance. [] HENT: Normocephalic, atraumatic, bilateral external ears normal, oropharynx moist, no oral exudates, nose normal. [] Eyes: PERRL, EOMI, conjunctiva normal, no discharge. [] Neck: Normal range of motion, no tenderness, supple. [] Cardiovascular:Heart rate regular rhythm, no murmur [] Lungs & Thorax: Bilateral breath sounds clear to auscultation [] Abdomen: Bowel sounds normal, soft, no tenderness, no masses, no pulsatile masses. [] Skin: Warm, dry, no erythema, no rash. [] Back: No tenderness, no CVA tenderness. [] Extremities: No tenderness, no cyanosis, ROM intact, no edema. [] Neurologic: Alert and oriented X 3, normal motor function, normal sensory function, no focal deficits noted. [] Psychologic: Affect normal, judgement normal, mood normal. 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 [] Current Patient Data: Labs: Laboratory Tests Test 11/20/19 23:15 11/20/19 23:21 Urine Collection Type Unknown Urine Color Yellow Urine Clarity Clear Urine pH 6.5 (<5.0-8.0) Urine Specific [place] >=1.030 (1.000-1.030) Urine Protein Negative mg/dL (NEG-TRACE) Urine Glucose (UA) Negative mg/dL (NEG) Urine Ketones (Stick) Negative mg/dL (NEG) Urine Blood Negative (NEG) Urine Nitrite Negative (NEG) Urine Bilirubin Negative (NEG) Urine Urobilinogen Dipstick 0.2 mg/dL (0.2 mg/dL) Urine Leukocyte Esterase Negative (NEG) Urine RBC 0 /HPF (0-2) Urine WBC 1-4 /HPF (0-4) Urine Squamous Epithelial Cells Mod /LPF Urine Bacteria Few /HPF (0-FEW) Urine Mucus Marked /LPF POC Urine HCG, Qualitative Hcg negative (Negative) Vital Signs: Vital Signs Date Time Temp Pulse Resp B/P (MAP) Pulse Ox O2 Delivery O2 Flow Rate FiO2 11/20/19 23:26 98.2 93 16 144/72 (96) 100 98.2 EKG: EKG: [] Radiology/Procedures: Radiology/Procedures: [] Course & Med Decision Making: Course & Med Decision Making Pertinent Labs and Imaging studies reviewed. (See chart for details) [] Dragon Disclaimer: Dragon Disclaimer: This electronic medical record was generated, in whole or in part, using a voice recognition dictation system. 0235 patient has vaginitis present. Prescription for Flagyl, Macrobid and Diflucan given. Patient stable for close follow-up. She does have an early urinary tract infection present. No clinical evidence of PID at this time and patient is not Departure Departure Impression: Primary Impression: Vaginal discharge Additional Impression: Acute urinary tract infection Disposition: HOME, SELF-CARE Condition: STABLE Referrals: NO PCP (PCP) BESS HARLEY MD Patient Instructions: Urinary Tract Infection, Vaginitis, [id number] Additional Instructions: Pelvic rest, no intercourse or tampons for the next several days, take medication as directed, return if worse Scripts Fluconazole (DIFLUCAN) 150 Mg Tablet 1 TAB PO ONCE, #1 TAB 1 Refill Prov: JOE HERNANDES DO 11/21/19 Metronidazole (FLAGYL) 500 Mg Tablet 1 TAB PO BID, #14 TAB Prov: JOE HERNANDES DO 11/21/19 Nitrofurantoin Monohyd/M-Cryst (MACROBID 100 MG CAPSULE) 100 Mg Capsule 1 CAP PO BID for 7 Days, #14 CAP 0 Refills Prov: JOE HERNANDES DO 11/21/19 Justicifation of Admission Dx: Justifications for Admission: Justification of Admission Dx: N/A JOE HERNANDES DO Nov 21, 2019 01:09
[2019-11-21] MEDS ORDERED: FLUC150T PO (02:42)
[2019-11-21] MEDS ORDERED: METR500T PO (02:42)
[2019-11-21] MEDS ORDERED: NITR100C62 PO (02:42)
[2019-11-21] MEDS ORDERED: AZITHROMYCIN 250 MG TABLET. PO ONE (03:00)
[2019-11-21] MEDS ORDERED: cefTRIAXone IM 250 MG VIAL IM ONE (03:00)
[2019-11-21 03:01] VITALS: BP 134/73
[2019-11-22 21:09] LABS: GC PROBE Negative (Negative)
== END 2019-11-21 03:00 | disposition home or self-care (01) ==
LOC: ER 22:57
DX: N39.0 Urinary tract infection, site not specified (principal); N89.8 Other specified noninflammatory disorders of vagina; R10.2 Pelvic and perineal pain; Z91.040 Latex allergy status
CPT/HCPCS: 81001; 81025; 87491; 87591; 96372; 99284; J0696; Q0111

== ENCOUNTER 2020-02-29 14:41 | Emergency (ER) | payer OTHER ==
[~2020-02-29] VITALS: Ht 162.6 cm; Wt 77.0 kg
[2020-02-29 15:01] LABS: BILIRUBIN,URINE NEGATIVE (NEG); CLARITY,URINE CLEAR; COLOR,URINE YELLOW; NITRITE,URINE NEGATIVE (NEG); PROTEIN,URINE NEGATIVE (NEG-TRACE); UROBILINOGEN,URINE 0.2 mg/dL (0.2 mg/dL)
[2020-02-29 15:08] LABS: BACTERIA,URINE FEW /HPF (0-FEW); RBC,URINE OCC /HPF (0-2)
--- NOTE | 2020-02-29 15:34 | RAD ---
Single view chest dated 07/01/2019: Comparison made to 02/19/2017 Clinical Indication: Cough. Findings: Single upright portable exam of the chest was performed. Heart size and mediastinal contours are within normal limits given technique. The lungs are clear without evidence of focal consolidation. No pleural effusion or pneumothorax. Impression:: Negative portable chest. Electronically signed by: Michael Grimaldo MD (02/29/2020 3:31 PM) [id number]
[2020-02-29] MEDS ORDERED: FLUCONAZOLE 100 MG TABLET. PO ONE (15:45)
[2020-02-29] MEDS ORDERED: METR500T PO (15:50)
--- NOTE | 2020-02-29 15:51 | PHYS DOC ---
Past Medical History Past Medical History: No Pertinent History Additional Past Medical Histor: gonorrhea/chlamydia Past Surgical History: No Surgical History Smoking Status: Never Smoker Alcohol Use: None Drug Use: None Social History Narrative: LAST USED 02/28/20 General Adult EDM: Chief Complaint: MULTIPLE COMPLAINTS HPI: HPI: Patient is a 24 year old female who presented to ER with vaginal discharge and itching for several days. Patient has history of bacterial vaginosis in the past. Patient denies any fever, no abdominal pain, no nausea vomiting. Patient also has some cough and chill with sore throat since yesterday, she is not sure if she been exposed to anybody who tested positive for COVID-19. Review of Systems: Review of Systems: Constitutional: Denies fever or chills. [] Eyes: Denies change in visual acuity. [] HENT: Denies nasal congestion or sore throat. [] Respiratory: Positive for cough, no trouble breathing. Cardiovascular: Denies chest pain or edema. [] GI: Denies abdominal pain, nausea, vomiting, bloody stools or diarrhea. [] : Denies dysuria. Positive for vaginal discharge and itching Musculoskeletal: Denies back pain or joint pain. [] Integument: Denies rash. [] Neurologic: Denies headache, focal weakness or sensory changes. [] Endocrine: Denies polyuria or polydipsia. [] Lymphatic: Denies swollen glands. [] Psychiatric: Denies depression or anxiety. [] Heart Score: Risk Factors: Risk Factors: DM, Current or recent (<one month) smoker, HTN, HLP, family history of CAD, obesity. Risk Scores: Score 0 - 3: 2.5% MACE over next 6 weeks - Discharge Home Score 4 - 6: 20.3% MACE over next 6 weeks - Admit for Clinical Observation Score 7 - 10: 72.7% MACE over next 6 weeks - Early Invasive Strategies Current Medications: Current Medications Medications (Trade) Dose Ordered Sig/Maritza Start Time Stop Time Status Last Admin Dose Admin Fluconazole (Diflucan) 200 mg 1X ONCE 02/29/20 15:45 02/29/20 15:46 DC Allergies: Allergies: Allergies Coded Allergies Type Severity Reaction Last Updated Verified Iodinated Contrast Media Allergy Severe "THROAT CLOSES" 10/12/19 Yes Physical Exam: PE: Constitutional: Well developed, well nourished, no acute distress, non-toxic appearance. [] HENT: Normocephalic, atraumatic, bilateral external ears normal, oropharynx moist, no oral exudates, nose normal. [] Eyes: PERRLA, EOMI, conjunctiva normal, no discharge. [] Neck: Normal range of motion, no tenderness, supple, no stridor. [] Cardiovascular:Heart rate regular rhythm, no murmur [] Lungs & Thorax: Bilateral breath sounds clear to auscultation [] Abdomen: Bowel sounds normal, soft, no tenderness, no masses, no pulsatile masses. [] Skin: Warm, dry, no erythema, no rash. [] Back: No tenderness, no CVA tenderness. [] Extremities: No tenderness, no cyanosis, no clubbing, ROM intact, no edema. [] Neurologic: Alert and oriented X 3, normal motor function, normal sensory function, no focal deficits noted. [] Psychologic: Affect normal, judgement normal, mood normal. [] Current Patient Data: Labs: Laboratory Tests Test 02/29/20 14:53 02/29/20 15:00 Urine Collection Type Unknown Urine Color Yellow Urine Clarity Clear Urine pH 6.0 (<5.0-8.0) Urine Specific [place] 1.020 (1.000-1.030) Urine Protein Negative mg/dL (NEG-TRACE) Urine Glucose (UA) Negative mg/dL (NEG) Urine Ketones (Stick) Trace mg/dL (NEG) Urine Blood Negative (NEG) Urine Nitrite Negative (NEG) Urine Bilirubin Negative (NEG) Urine Urobilinogen Dipstick 0.2 mg/dL (0.2 mg/dL) Urine Leukocyte Esterase Negative (NEG) Urine RBC Occ /HPF (0-2) Urine WBC 1-4 /HPF (0-4) Urine Squamous Epithelial Cells Mod /LPF Urine Bacteria Few /HPF (0-FEW) Urine Mucus Marked /LPF POC Urine HCG, Qualitative Hcg negative (Negative) Vital Signs: Vital Signs Date Time Temp Pulse Resp B/P (MAP) Pulse Ox O2 Delivery O2 Flow Rate FiO2 02/29/20 14:50 98.6 76 16 131/74 (93) 100 Room Air 98.6 EKG: EKG: [] Radiology/Procedures: Radiology/Procedures: [] Course & Med Decision Making: Course & Med Decision Making Pertinent Labs and Imaging studies reviewed. (See chart for details) [] Dragon Disclaimer: Dragon Disclaimer: This electronic medical record was generated, in whole or in part, using a voice recognition dictation system. Departure Departure Impression: Primary Impression: Vaginal discharge Additional Impression: Person under investigation for COVID-19 Disposition: 01 DC HOME SELF CARE/HOMELESS Condition: STABLE Referrals: UNKNOWN PCP NAME (PCP) Patient Instructions: Vaginitis, [id number] Additional Instructions: You have been tested for or diagnosed with COVID-19. It is an infection caused by a new type of coronavirus. COVID-19 will cause cold-like or mild flu symptoms in most. It can cause more severe symptoms like problems breathing in some. There is no treatment for COVID-19. The body will clear the infection over time. Self-care will help to ease discomfort. Steps to Take: Self-Care Rest as needed. Healthy habits may help you feel better. Steps include: Choose healthy foods including fruits and vegetables. Drink water throughout the day. Get plenty of sleep each night. If you smoke, try to quit. It may ease breathing. Avoid alcohol. Keep Others Healthy The virus can spread to others. Droplets are released every time you sneeze or cough. The droplets can get into the mouth, nose, or eyes of people near you and lead to infection. To lower the chances of spreading COVID-19 to others: Stay at home until your doctor has said it is safe to leave. If you tested positive this will mean staying isolated until both of the following are true: At least 7 days have passed since the start of illness. You are free of fever for at least 72 hours without the use of medicine. During this time: - Avoid public areas, events, or transportation. Do not return to work or school until your doctor has said it is safe to do so. - Call ahead if you need to go to a medical center. Let them know you may have COVID-19. It will help them guide you where to go. They may also ask you to wear a facemask when you come to the office. - If you call for emergency medical services, let them know you may have COVID- 19. While at home: - Try to avoid close contact with others. Stay about 6 feet away. - If possible, spend most of your time in a separate room from others. - Use a face mask if you will be in close contact with others such as sharing a room or vehicle. - Have someone wipe down common surfaces in the home. Use household scrap metal processing worker every day on areas like doorknobs, counters, or sinks. - Cough or sneeze into a tissue. Throw the tissue away right after use. If a tissue is not available, cough or sneeze into your elbow. - Wash your hands often. Wash them after sneezing or coughing. Use soap and water and wash for at least 20 seconds. Alcohol based hand block cleaner can be used if soap and water is not available. - Do not prepare food for others. Avoid sharing personal items like forks, spoons, or toothbrushes. - Avoid close contact with pets while you are sick. There is no evidence of the virus passing to pets. This is a safety step until more is known about this virus. Isolation can be frustrating. Social interaction can help. Keep in touch with friends and family through phone and tech options. You can still interact with others in your home, just keep a safe distance of about 6 feet. Follow-up: Your doctors office will check in with you to see if there are any changes in your health. You may be asked to keep track of symptoms to share with them. They will also let you know when you are clear to be in public again. Problems to Look Out For: Contact your doctor if your recovery is not going as you expect. Get emergency care if you have problems such as: - Trouble breathing - Nonstop chest pain or pressure - Changes in awareness, confusion, or problems waking - Lips or face have bluish color - Worsening of symptoms If you think you have an emergency, call for emergency medical services right away. [facility] Scripts Metronidazole (FLAGYL) 500 Mg Tablet 1 TAB PO BID, #14 TAB Prov: YONNY QUIÑONES DO 02/29/20 YONNY QUIÑONES DO Feb 29, 2020 15:50
[2020-02-29 15:59] VITALS: BP 128/88
[2020-02-29] MEDS ORDERED: cefTRIAXone IM 250 MG VIAL IM ONE (16:00)
[2020-02-29] MEDS ORDERED: AZITHROMYCIN 250 MG TABLET. PO ONE (16:00)
--- NOTE | 2020-03-02 09:24 | NUR ---
IP: Informed pt of negative COVID test. Pt verbalized understanding.
== END 2020-02-29 16:15 | disposition home or self-care (01) ==
LOC: ER 14:41
DX: N89.8 Other specified noninflammatory disorders of vagina (principal); Z20.828 Contact with and (suspected) exposure to other viral communicable diseases; Z91.041 Radiographic dye allergy status
CPT/HCPCS: 71045; 81001; 81025; 96372; 99284; C9803; J0696; U0003

== ENCOUNTER 2020-09-09 21:05 | Emergency (ER) | payer OTHER ==
[~2020-09-09] VITALS: Ht 162.6 cm; Wt 84.0 kg
[~2020-09-09 21:05] MED LIST changes: -CLIN150C14 PO; +CLIN150C15 PO
--- NOTE | 2020-09-09 21:49 | PHYS DOC ---
Past Medical History Past Medical History: No Pertinent History Additional Past Medical Histor: gonorrhea/chlamydia Past Surgical History: No Surgical History Smoking Status: Never Smoker Alcohol Use: None Drug Use: None General Adult EDM: Chief Complaint: SKIN RASH/ABSCESS HPI: HPI: Patient is a 24 year old female who presents to the ED today complaining of an abscess to the right axilla that she noted 2 days ago. Patient denies any fever or drainage from the area. She reports history of ingrown hands to the axilla. Review of Systems: Review of Systems: Constitutional: Denies fever or chills. [] Musculoskeletal: Denies back pain or joint pain. [] Integument: Reports right axilla abscess Neurologic: Denies headache, focal weakness or sensory changes. [] Psychiatric: Denies depression or anxiety. [] Heart Score: C/O Chest Pain: N/A Risk Factors: Risk Factors: DM, Current or recent (<one month) smoker, HTN, HLP, family history of CAD, obesity. Risk Scores: Score 0 - 3: 2.5% MACE over next 6 weeks - Discharge Home Score 4 - 6: 20.3% MACE over next 6 weeks - Admit for Clinical Observation Score 7 - 10: 72.7% MACE over next 6 weeks - Early Invasive Strategies Current Medications: Current Medications Medications (Trade) Dose Ordered Sig/Maritza Start Time Stop Time Status Last Admin Dose Admin Diphtheria/ Tetanus/Acell Pertussis (ADACEL TDap SYRINGE) 0.5 ml ONCE ONCE 09/09/20 22:00 09/09/20 22:01 Allergies: Allergies: Allergies Coded Allergies Type Severity Reaction Last Updated Verified Iodinated Contrast Media Allergy Severe "THROAT CLOSES" 10/12/19 Yes Physical Exam: PE: Constitutional: Well developed, well nourished, no acute distress, non-toxic appearance. [] Skin: Warm, dry, right axilla with a palpable 9 indurated area roughly 1 x 1 cm and another wound roughly 0.5 cm x 0.5 cm. There is no fluctuance to this regions, there is no warmth but they are very tender. Back: No tenderness, no CVA tenderness. [] Extremities: No tenderness, no cyanosis, no clubbing, ROM intact, no edema. [] Neurologic: Alert and oriented X 3, normal motor function, normal sensory functi on, no focal deficits noted. [] Psychologic: Affect normal, judgement normal, mood normal. [] Current Patient Data: Vital Signs: Vital Signs Date Time Temp Pulse Resp B/P (MAP) Pulse Ox O2 Delivery O2 Flow Rate FiO2 09/09/20 21:27 97.9 18 140/86 (104) 100 Room Air 97.9 EKG: EKG: [] Radiology/Procedures: Radiology/Procedures: [] Course & Med Decision Making: Course & Med Decision Making Pertinent Labs and Imaging studies reviewed. (See chart for details) This is a 24-year-old female patient with right axilla abscess that is not ready to drain. Discharged on Bactrim. Tetanus updated. Provided return precautions and wound care instructions Nash Disclaimer: Nash Disclaimer: This electronic medical record was generated, in whole or in part, using a voice recognition dictation system. Departure Departure Impression: Primary Impression: Abscess of axilla, right Disposition: 01 HOME / SELF CARE / HOMELESS Condition: STABLE Referrals: NO PCP (PCP) SCOTT GRIFFIN MD follow up in 1-2 weeks Patient Instructions: Abscess Additional Instructions: You have right axilla abscess, this could come from ingrown hairs, try not to shave your axilla region until it clears out. Take the prescribed antibiotics until completed. Apply warm compresses to the axilla to 2- 3 times a day. Follow-up with the provided general surgeon in 1 to 2 weeks Scripts Hydrocodone Bit/Acetaminophen (HYDROCODONE-APAP 5-325 ) 1 Tab Tablet 1 TAB PO PRN Q6HRS PRN for PAIN, #10 TAB 0 Refills Prov: CHRIS LOUIS APRN 09/09/20 Sulfamethoxazole/Trimethoprim (BACTRIM 400-80 MG TABLET) 1 Each Tablet 1 TAB PO BID for 10 Days, #20 TAB 0 Refills Prov: CHRIS LOUIS APRN 09/09/20 CHRIS LOUIS APRN September 09, 2020 21:48
[2020-09-09] MEDS ORDERED: SULF1TAB23 PO (21:52)
[2020-09-09] MEDS ORDERED: HYDR-2761 PO (21:52)
[2020-09-09 21:55] VITALS: BP 115/80
[2020-09-09] MEDS ORDERED: DIPH,PERTUSS(ACELL),TET VAC/PF 0.5 ML SYRINGE. VAX IM ONE (22:00)
== END 2020-09-09 22:00 | disposition home or self-care (01) ==
LOC: ER 21:05
DX: L02.411 Cutaneous abscess of right axilla (principal); Z91.041 Radiographic dye allergy status
CPT/HCPCS: 90471; 90715; 99283-25

== ENCOUNTER 2020-10-14 22:05 | Emergency (ER) | payer OTHER ==
[~2020-10-14] VITALS: Ht 162.6 cm; Wt 88.2 kg
[~2020-10-14 22:05] MED LIST changes: +HYDR-2761 PO; +SULF1TAB23 PO
[2020-10-14 22:22] VITALS: BP 155/111
[2020-10-14 22:45] LABS: BILIRUBIN,URINE NEGATIVE (NEG); CLARITY,URINE CLEAR; COLOR,URINE YELLOW; NITRITE,URINE NEGATIVE (NEG); PROTEIN,URINE NEGATIVE (NEG-TRACE)
[2020-10-14] MEDS ORDERED: cefTRIAXone IM 500 MG VIAL. IM ONE (22:45)
[2020-10-14 22:53] LABS: BACTERIA,URINE 0 /HPF (0-FEW); RBC,URINE 0 /HPF (0-2); WBC,URINE OCC /HPF (0-4)
[2020-10-14] MEDS ORDERED: FLUCONAZOLE 100 MG TABLET. PO ONE (23:15)
[2020-10-14] MEDS ORDERED: DOXY100C2 PO (23:29)
[2020-10-14] MEDS ORDERED: METR500T PO (23:29)
[2020-10-14] MEDS ORDERED: FLUC150T PO (23:29)
--- NOTE | 2020-10-14 23:30 | ED.ADGEN ---
Past Medical History Past Medical History: No Pertinent History Additional Past Medical Histor: gonorrhea/chlamydia Past Surgical History: No Surgical History Smoking Status: Never Smoker Alcohol Use: None Drug Use: None General Adult EDM: Chief Complaint: VAGINAL PROBLEM HPI: HPI: Patient is a 25-year-old previously healthy female who presents to the emergency room complaining of vaginal discharge and itching. Patient states that she had similar symptoms a few years ago but does not remember what they were from. She states that this started 2 or 3 days ago and is progressively gotten worse. She denies any vaginal pain. She denies any pelvic pain, nausea, vomiting, fever, chills, sweats. She does not have any pain with intercourse. She states that the discharge is a white color. Review of Systems: Review of Systems: Complete ROS is negative unless otherwise documented in HPI Current Medications: Current Medications Medications (Trade) Dose Ordered Sig/Maritza Start Time Stop Time Status Last Admin Dose Admin Ceftriaxone Sodium (Rocephin Im) 500 mg 1X ONCE 10/14/20 22:45 10/14/20 22:46 DC 10/14/20 23:14 500 MG Fluconazole (Diflucan) 100 mg 1X ONCE 10/14/20 23:15 10/14/20 23:16 DC 10/14/20 23:47 100 MG Allergies: Allergies: Allergies Coded Allergies Type Severity Reaction Last Updated Verified Iodinated Contrast Media Allergy Severe "THROAT CLOSES" 09/09/20 Yes Physical Exam: PE: Constitutional: Well developed, well nourished, no acute distress, non-toxic appearance. HENT: Normocephalic, atraumatic, bilateral external ears normal, nose normal. Eyes: PERRLA, EOMI, conjunctiva normal, no discharge. Neck: Normal range of motion, no stridor. Cardiovascular: Heart rate regular rhythm Lungs & Thorax: Respirations even and unlabored, no retractions, no respiratory distress Pelvic Exam: Semiconductor Assembler present Abdomen: Nontender, soft External Genitalia: Normal Skin Speculum: Normal vaginal mucosa, white vaginal discharge Bimanual: No adnexal masses or tenderness, No CMT Skin: Warm, dry, no erythema, no rash. Back: No tenderness Extremities: No cyanosis, ROM intact, no edema. Neurologic: Alert and oriented X 3, no focal deficits noted. Psychologic: Affect normal, judgement normal, mood normal. Current Patient Data: Labs: Laboratory Tests Test 10/14/20 22:10 10/14/20 22:13 10/14/20 22:35 Urine Collection Type Unknown Urine Color Yellow Urine Clarity Clear Urine pH 6.0 (<5.0-8.0) Urine Specific [place] >=1.030 (1.000-1.030) Urine Protein Negative mg/dL (NEG-TRACE) Urine Glucose (UA) Negative mg/dL (NEG) Urine Ketones (Stick) 15 mg/dL (NEG) Urine Blood Negative (NEG) Urine Nitrite Negative (NEG) Urine Bilirubin Negative (NEG) Urine Urobilinogen Dipstick 1.0 mg/dL (0.2 mg/dL) Urine Leukocyte Esterase Negative (NEG) Urine RBC 0 /HPF (0-2) Urine WBC Occ /HPF (0-4) Urine Squamous Epithelial Cells Mod /LPF Urine Bacteria 0 /HPF (0-FEW) Urine Mucus Mod /LPF POC Urine HCG, Qualitative Hcg negative (Negative) Chlamydia DNA Probe Negative (Negative) Neisseria gonorrhoeae DNA Probe Negative (Negative) Microbiology 10/14/20 Wet Prep - Final, Complete Vital Signs: Vital Signs Date Time Temp Pulse Resp B/P (MAP) Pulse Ox O2 Delivery O2 Flow Rate FiO2 10/14/20 22:22 98.4 99 20 155/111 (126) 99 Room Air 98.4 EKG: EKG: [] Heart Score: C/O Chest Pain: N/A Risk Factors: Risk Factors: DM, Current or recent (<one month) smoker, HTN, HLP, family history of CAD, obesity. Risk Scores: Score 0 - 3: 2.5% MACE over next 6 weeks - Discharge Home Score 4 - 6: 20.3% MACE over next 6 weeks - Admit for Clinical Observation Score 7 - 10: 72.7% MACE over next 6 weeks - Early Invasive Strategies Radiology/Procedures: Radiology/Procedures: [] Course & Med Decision Making: Course & Med Decision Making Pertinent Labs and Imaging studies reviewed. (See chart for details) Patient is a 25-year-old female presents to the emergency room complaining of vaginal discharge and itching. Wet mount shows yeast and BV. Patient will be treated for both here in the emergency room. She was treated empirically for gonorrhea and chlamydia and the swabs were sent to lab. She does not have signs of PID. Patient's test results and vitals while in the ED were fully reviewed and discussed with the patient. Patient is stable and at this time does not need admission to the hospital. We have discussed strict return precautions and the importance of following up with their Primary Care Physician. Patient stated understanding and was given an opportunity to ask any questions. Patient is in agreement with plan. Dragon Disclaimer: Dragon Disclaimer: This electronic medical record was generated, in whole or in part, using a voice recognition dictation system. Departure Departure Impression: Primary Impression: Bacterial vaginosis Additional Impression: Vaginal discharge Disposition: HOME / SELF CARE / HOMELESS Condition: STABLE Referrals: NO PCP (PCP) Patient Instructions: Bacterial Vaginosis, Yeast Infection of the Skin, [id number]-vt-Wkrw Scripts Fluconazole (DIFLUCAN) 150 Mg Tablet 1 TAB PO ONCE, #1 TAB 1 Refill Prov: DAYNE ACEVES MD 10/14/20 Doxycycline Hyclate (DOXYCYCLINE HYCLATE) 100 Mg Capsule 1 CAP PO BID, #14 CAP Prov: DAYNE ACEVES MD 10/14/20 Metronidazole (FLAGYL) 500 Mg Tablet 1 TAB PO BID, #14 TAB Prov: DAYNE ACEVES MD 10/14/20 Problem Qualifiers DAYNE ACEVES MD Oct 14, 2020 23:30
[2020-10-16 18:09] LABS: GC PROBE Negative (Negative)
== END 2020-10-14 23:50 | disposition home or self-care (01) ==
LOC: ER 22:05
DX: N76.0 Acute vaginitis (principal); B96.89 Other specified bacterial agents as the cause of diseases classified elsewhere; Z91.041 Radiographic dye allergy status
CPT/HCPCS: 81001; 81025; 87491; 87591; 96372; 99284; J0696; Q0111; 99283

== ENCOUNTER 2021-03-01 08:13 | Emergency (ER) | payer OTHER ==
[~2021-03-01] VITALS: Ht 165.1 cm; Wt 98.0 kg
[~2021-03-01 08:13] MED LIST changes: -CLIN150C15 PO; +CLIN150C16 PO; +DOXY100C3 PO
[2021-03-01 10:26] LABS: BILIRUBIN,URINE NEGATIVE (NEG); CLARITY,URINE CLEAR; COLOR,URINE YELLOW; NITRITE,URINE NEGATIVE (NEG); PROTEIN,URINE NEGATIVE (NEG-TRACE); UROBILINOGEN,URINE 0.2 mg/dL (0.2 mg/dL)
[2021-03-01 10:47] LABS: BACTERIA,URINE FEW /HPF (0-FEW); RBC,URINE 0 /HPF (0-2); WBC,URINE 0 /HPF (0-4)
[2021-03-01 11:32] VITALS: BP 127/68
--- NOTE | 2021-03-01 12:42 | PHYS DOC ---
Past Medical History Past Medical History: No Pertinent History Additional Past Medical Histor: gonorrhea/chlamydia Past Surgical History: No Surgical History Smoking Status: Never Smoker Alcohol Use: Occasionally Drug Use: None General Adult EDM: Chief Complaint: VAGINAL PROBLEM HPI: HPI: Patient is a 25-year-old female presents to the emergency department complaining of vaginal itching since this past Monday. Patient denies vaginal discharge, denies odors, denies lesions to her skin, denies STI concerns, states she has not had sex in over 2 months. Reports she is suspicious of an allergic reaction as she is allergic to a soap called GAIN, and reports her grandmother used the same brand of dryer sheets while doing laundry, patient suspects she is having a reaction from wearing underwear that was dried with the same product. Patient reports she is not taking any prescription or [id number] medications for itching or discomfort. Reports an allergy to contrast media only. Denies abdominal pain or pelvic pain, denies nausea, vomiting, diarrhea. Denies rashes to other parts of her body. Denies shortness of breath, recent fever or chills. Patient denies other physical complaints or physical concerns. Review of Systems: Review of Systems: 14 body systems of review of systems have been reviewed. See HPI for pertinent positives and negative responses, otherwise all other systems are negative, nonpertinent or noncontributory. Constitutional: Negative except as outlined in HPI above. Skin: Negative except as outlined in HPI above. Eyes: Negative except as outlined in HPI above. HENT: Negative except as outlined in HPI above. Respiratory: Negative except as outlined in HPI above. Cardiovascular: Negative except as outlined in HPI above. GI: Negative except as outlined in HPI above. : Negative except as outlined in HPI above. Musculoskeletal: Negative except as outlined in HPI above. Integument: Negative except as outlined in HPI above. Neurologic: Negative except as outlined in HPI above. Endocrine: Negative except as outlined in HPI above. Lymphatic: Negative except as outlined in HPI above. Psychiatric: Negative except as outlined in HPI above. Heart Score: C/O Chest Pain: No Risk Factors: Risk Factors: DM, Current or recent (<one month) smoker, HTN, HLP, family history of CAD, obesity. Risk Scores: Score 0 - 3: 2.5% MACE over next 6 weeks - Discharge Home Score 4 - 6: 20.3% MACE over next 6 weeks - Admit for Clinical Observation Score 7 - 10: 72.7% MACE over next 6 weeks - Early Invasive Strategies Allergies: Allergies: Allergies Coded Allergies Type Severity Reaction Last Updated Verified Iodinated Contrast Media Allergy Severe "THROAT CLOSES" 03/01/21 Yes Physical Exam: PE: Constitutional: Well developed, well nourished, no acute distress, non-toxic appearance. 25-year-old female in no apparent distress. HENT: Normocephalic, atraumatic. Eyes: Conjunctiva normal, no discharge. Neck: Normal range of motion. Cardiovascular: Distal cap refill less than 2 seconds, no cyanosis appreciated. Lungs & Thorax: Patient is in no respiratory distress, no adventitious lung sounds appreciated. Abdomen: Bowel sounds normal, soft, no tenderness, no masses, no pulsatile masses. No bruising or skin discoloration of the abdomen. Skin: Warm, dry, no erythema, no rash. Back: No tenderness, no CVA tenderness. Extremities: No tenderness, no cyanosis, no clubbing, ROM intact, no edema. Neurologic: Alert and oriented X 3, normal motor function, normal sensory function, no focal deficits noted. Psychologic: Affect normal, judgement normal, mood normal. : Pelvic examination performed with female ED nurse at bedside for party planner, external vaginal structures shows excoriation to labia major bilaterally near buttocks fold, no other infectious process appreciated, no vaginal discharge appreciated externally, speculum exam reveals pink vaginal resendiz without discharge, STI cultures were obtained and sent to lab, no cervical motion tenderness or left or right-sided adnexal tenderness with bimanual exam. Current Patient Data: Labs: Laboratory Tests Test 03/01/21 10:13 Urine Collection Type Unknown Urine Color Yellow Urine Clarity Clear Urine pH 6.0 (<5.0-8.0) Urine Specific [place] 1.025 (1.000-1.030) Urine Protein Negative mg/dL (NEG-TRACE) Urine Glucose (UA) Negative mg/dL (NEG) Urine Ketones (Stick) Negative mg/dL (NEG) Urine Blood Negative (NEG) Urine Nitrite Negative (NEG) Urine Bilirubin Negative (NEG) Urine Urobilinogen Dipstick 0.2 mg/dL (0.2 mg/dL) Urine Leukocyte Esterase Negative (NEG) Urine RBC 0 /HPF (0-2) Urine WBC 0 /HPF (0-4) Urine Squamous Epithelial Cells Few /LPF Urine Bacteria Few /HPF (0-FEW) Urine Mucus Slight /LPF Microbiology 03/01/21 Wet Prep - Final, Complete Vital Signs: Vital Signs Date Time Temp Pulse Resp B/P (MAP) Pulse Ox O2 Delivery O2 Flow Rate FiO2 03/01/21 11:32 85 15 127/68 (87) 97 Room Air 03/01/21 09:32 98.3 98.3 EKG: EKG: [] Radiology/Procedures: Radiology/Procedures: [] Course & Med Decision Making: Course & Med Decision Making Pertinent Labs and Imaging studies reviewed. (See chart for details) 25-year-old female, vital signs reviewed, resents emerged from concerning vaginal itching since past Monday. Physical examination concerning for contact dermatitis versus yeast infection, low likelihood of STI, will send urinalysis assay with test. Patient's wet prep nonconcerning, the patient's urine is not infected, she is not . Discussed findings with patient, discussed this is most likely a contact dermatitis related to the GAIN brand dryer sheets. We will treat with Benadryl p.o. today prior to discharge from the emergency department, discussed using topical cortisone yykv-oli-[id number] cream/ointment for itching, considered prescription strength however very mild dermatitis presentation. Patient is amenable to ED discharge planning, strict follow-up with primary care CHAIR UPHOLSTERER soon, return to ER precautions and concerns. Discussed with the patient all findings and diagnostic testing as well as the need to follow-up with their primary care provider for further evaluation and treatment or return to the ED if any new or worsening symptoms. Strict return precautions were also discussed at length, the patient voiced understanding and agreement with the discharge planning. The patient was nontoxic in appearance, in no apparent distress, and hemodynamically stable at the time of disposition. Dragon Disclaimer: Dragon Disclaimer: This electronic medical record was generated, in whole or in part, using a voice recognition dictation system. Departure Departure Impression: Primary Impression: Contact dermatitis Qualified Codes: L24.0 - Irritant contact dermatitis due to detergents Disposition: HOME / SELF CARE / HOMELESS Condition: GOOD Referrals: NO PCP (PCP) Patient Instructions: Contact Dermatitis Additional Instructions: You were seen today in the emergency department for vaginal itching. An extensive work-up was performed today to include vaginal cultures and sexually transmitted disease investigation, your vaginal cultures did not reveal any signs of yeast infection, bacterial vaginosis, or trichomonas. As we discussed your gonorrhea and Chlamydia cultures are still pending. As we discussed there is low likelihood of this infection, if either culture comes back positive you will be contacted for further direction of treatment. As we discussed, I believe your itching is related to the GAIN dryer sheets and you have a contact dermatitis. This is a very mild presentation, please use vrul-orl-dcanavm topical cortisone cream or ointment as directed. You may use oral Benadryl for itching. Please keep your appointment with your CHAIR UPHOLSTERER soon. Return to the emergency department for worsening symptoms or other concerns. Thank you for visiting our Emergency Department. It was a pleasure taking care of you today in the emergency department and we appreciate you trusting us with your care. If any additional problems come up don't hesitate to return to visit us. Please follow up with your primary care provider so they can plan additional care if needed and know about the problem that you had. If symptoms worsen come back to the Emergency Department. Any concerning symptoms that start such as chest pain, shortness of air, weakness or numbness on one side of the body, running high fevers or any other concerning symptoms return to the ER. EMERGENCY DEPARTMENT GENERAL DISCHARGE INSTRUCTIONS Thank you for coming to [facility] Emergency Department (ED) today and trusting us with you care. We trust that you had a positive experience in our Emergency Department. If you wish to speak to the department management, you may call the Director at [phone]. YOUR FOLLOW UP INSTRUCTIONS ARE FOLLOWS: 1. Do you have a private Doctor? If you do not have a private doctor, please ask for a resource list of physicians or clinics that may be able to assist you with follow up care. 2. The Emergency Physicain has interpreted your x-rays. The X-Ray specialist will also review them. If there is a change in the findings, you will be notified in 48 hours when at all possible. 3. A lab test or culture has been done, your results will be reviewed and you will be notified if you need a change in treatment. ADDITIONAL INSTRUCTIONS AND INFORMATION: 1. Your care today has been supervised by a physician who is specially trained in emergency care. Many problems require more than one evaluation for a complete diagnosis and treatment. We recommend that you schedule your follow up appointment as recommended to ensure complete treatment of you illness or injury. If you are unable to obtain follow up care and continue to have a problem, or if your condition worsens, we recommend that you return to the ED. 2. We are not able to safely determine your condition over the phone nor are we able to give sound medical advice over the phone. For these safety reasons, if you call for medical advice we will ask you to come to the ED for further evaluation. 3. If you have any questions regarding these discharge instructions please call the ED at [phone]. SAFETY INFORMATION: In the interest of safety, wellness, and injury prevention; we encourage you to wear your sealbelt, if you smoke; quite smoking, and we encourage family to use a protective helmet for bicycling and other sporting events that present an increased risk for head injury. IF YOUR SYMPTOMS WORSEN OR NEW SYMPTOMS DEVELOP, OR YOU HAVE CONCERNS ABOUT YOUR CONDITION; OR IF YOUR CONDITION WORSENS WHILE YOU ARE WAITING FOR YOUR FOLLOW UP APPOINTMENT; EITHER CONTACT YOUR PRIMARY CARE DOCTOR, THE PHYSICIAN WHOSE NAME AND NUMBER YOU WERE GIVEN, OR RETURN TO THE ED IMMEDIATELY. IGGY AU APRN Mar 01, 2021 12:42
[2021-03-02 18:24] LABS: GC PROBE Negative (Negative)
== END 2021-03-01 12:53 | disposition home or self-care (01) ==
LOC: ER 08:13
DX: L24.0 Irritant contact dermatitis due to detergents (principal); Z91.041 Radiographic dye allergy status
CPT/HCPCS: 81001; 87491; 87591; 99284; Q0111

== ENCOUNTER 2021-08-27 20:20 | Emergency (ER) | payer OTHER ==
[~2021-08-27] VITALS: Ht 167.6 cm; Wt 72.0 kg
[2021-08-27 21:51] LABS: BACTERIA,URINE FEW /HPF (0-FEW)
[2021-08-27 21:52] LABS: RBC,URINE 0 /HPF (0-2); WBC,URINE OCC /HPF (0-4)
[2021-08-27] MEDS ORDERED: HYDROcodone/APAP 5/325MG 1 TAB TABLET PO ONE (22:00)
[2021-08-27] MEDS ORDERED: IBUPROFEN 200 MG TABLET. PO ONE (22:00)
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
[2021-08-27] MEDS ORDERED: CYCL10TA19 PO (23:17)
[2021-08-27] MEDS ORDERED: IBUP-1007 PO (23:17)
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
[2021-08-27 23:34] VITALS: BP 132/85
== END 2021-08-27 23:33 | disposition home or self-care (01) ==
LOC: ER 20:20
DX: S60.221A Contusion of right hand, initial encounter (principal); S90.01XA Contusion of right ankle, initial encounter; R51.9 Headache, unspecified; M54.2 Cervicalgia; Z91.041 Radiographic dye allergy status; V49.49XA Driver injured in collision with other motor vehicles in traffic accident, initial encounter; Y93.89 Activity, other specified; Y92.488 Other paved roadways as the place of occurrence of the external cause; Y99.8 Other external cause status
CPT/HCPCS: 70450; 72125; 73130; 73610; 81001; 81025; 87086; 99285-25

== ENCOUNTER 2021-09-21 09:48 | Emergency (ER) | payer OTHER ==
[~2021-09-21] VITALS: Ht 162.6 cm; Wt 90.1 kg
[~2021-09-21 09:48] MED LIST changes: +CYCL10TA19 PO; +IBUP-1007 PO
[2021-09-21 09:57] VITALS: BP 141/79
[2021-09-21] MEDS ORDERED: IBUPROFEN 200 MG TABLET. PO ONE (10:30)
[2021-09-21] MEDS ORDERED: DEXAMETHASONE 4 MG TABLET PO ONE (10:30)
--- NOTE | 2021-09-21 10:47 | PHYS DOC ---
Past Medical History Past Medical History: STD Past Surgical History: No Surgical History Smoking Status: Never Smoker Alcohol Use: Occasionally Drug Use: None General Adult EDM: Chief Complaint: SORE THROAT HPI: HPI: Patient is a 25 year old female who presents with sore throat since yesterday morning. Patient states that around this time each year, she gets "strep throat." Patient denies fever, chills, weakness, difficulty swallowing, shortness of breath, cough, nasal congestion. Review of Systems: Review of Systems: ROS negative or noncontributory except as mentioned in HPI. Heart Score: C/O Chest Pain: No Current Medications: Current Medications Medications (Trade) Dose Ordered Sig/Maritza Start Time Stop Time Status Last Admin Dose Admin Dexamethasone (Decadron) 10 mg 1X ONCE 09/21/21 10:30 09/21/21 10:31 DC Ibuprofen (Motrin) 600 mg 1X ONCE 09/21/21 10:30 09/21/21 10:31 DC Allergies: Allergies: Allergies Coded Allergies Type Severity Reaction Last Updated Verified Iodinated Contrast Media Allergy Severe "THROAT CLOSES" 03/01/21 Yes Physical Exam: PE: Constitutional: Well developed, well nourished, no acute distress, non-toxic appearance. HENT: Normocephalic, atraumatic, bilateral external ears normal, oropharynx moist, bilateral tonsils 2+ and erythematous with white exudate. Eyes: EOMI, conjunctiva normal, no discharge. Neck: Normal range of motion, no tenderness, anterior cervical LAD, no stridor. Skin: Warm, dry, no erythema, no rash. Extremities: No cyanosis, no clubbing, ROM intact, no edema. Neurologic: Alert and oriented x4, normal motor function, normal sensory function, no focal deficits noted. Current Patient Data: Vital Signs: Vital Signs Date Time Temp Pulse Resp B/P (MAP) Pulse Ox O2 Delivery O2 Flow Rate FiO2 09/21/21 09:57 98.5 92 16 141/79 (99) 98 Room Air 98.5 Course & Med Decision Making: Course & Med Decision Making Pertinent Labs and Imaging studies reviewed. (See chart for details) Rapid strep test is negative, though pending culture. Patient advised on supportive measures for viral pharyngitis. She is aware that should the culture come back positive, she will be contacted and prescribed antibiotics. Her questions were answered. Return precautions were provided. Patient understands and is agreeable to discharge plan. Nash Disclaimer: [place] Disclaimer: This electronic medical record was generated, in whole or in part, using a voice recognition dictation system. Departure Departure Impression: Primary Impression: Acute tonsillitis Qualified Codes: J03.90 - Acute tonsillitis, unspecified Disposition: HOME / SELF CARE / HOMELESS Condition: STABLE Referrals: MICHAEL MACHADO MD (PCP) PUJA MYERS MD Patient Instructions: Sore Throat, [id number], Tonsillitis, [id number] Additional Instructions: EMERGENCY DEPARTMENT GENERAL DISCHARGE INSTRUCTIONS Thank you for coming to [facility] Emergency Department (ED) yodit walker and trusting us with you care. We trust that you had a positive experience in our Emergency Department. If you wish to speak to the department management, you may call the director at . YOUR FOLLOW UP INSTRUCTIONS ARE FOLLOWS: 1. Follow up with your primary care doctor. If you do not have a primary doctor, please ask for a resource list of physicians or clinics that may be able to assist you with follow up care. 2. The emergency provider has interpreted your imaging studies, if any were ordered. The radiology quality control specialist also reviewed them. If there is a change in the findings, you will be notified in 48 hours when at all possible. 3. If a lab test or culture has been done, your results will be reviewed and you will be notified if you need a change in treatment. 4. Follow instructions verbalized to you and refer to the printouts if needed. ADDITIONAL INSTRUCTIONS AND INFORMATION: 1. Your care today has been supervised by a physician who is specially trained in emergency care. Many problems require more than one evaluation for a complete diagnosis and treatment. We recommend that you schedule your follow up appointment as recommended to ensure complete treatment of you illness or injury. If you are unable to obtain follow up care and continue to have a problem, or if your condition worsens, we recommend that you return to the ED. 2. We are not able to safely determine your condition over the phone nor are we able to give sound medical advice over the phone. For these safety reasons, if you call for medical advice we will ask you to come to the ED for further evaluation. 3. If you have any questions regarding these discharge instructions please call the ED at . SAFETY INFORMATION: In the interest of safety, wellness, and injury prevention; we encourage you to wear your seat belt, if you smoke; quite smoking, and we encourage family to use a protective helmet for bicycling and other sporting events that present an increased risk for head injury. IF YOUR SYMPTOMS WORSEN OR NEW SYMPTOMS DEVELOP, OR YOU HAVE CONCERNS ABOUT YOUR CONDITION; OR IF YOUR CONDITION WORSENS WHILE YOU ARE WAITING FOR YOUR FOLLOW UP APPOINTMENT; EITHER CONTACT YOUR PRIMARY CARE DOCTOR, THE PHYSICIAN WHOSE NAME AND NUMBER YOU WERE GIVEN, OR RETURN TO THE ED IMMEDIATELY. CHELITA VALENCIA September 21, 2021 10:47
== END 2021-09-21 10:56 | disposition home or self-care (01) ==
LOC: ER 09:48
DX: J03.90 Acute tonsillitis, unspecified (principal)
CPT/HCPCS: 87070; 87880; 99283